=== PATIENT | male | born 1940 | race Caucasian/White ===

== ENCOUNTER 2018-03-25 08:51 | Emergency (ER) | payer MEDICARE, BC ==
--- NOTE | 2018-03-25 10:51 | CR ---
Chest: Two views of the chest were obtained. Comparison: Prior chest x-ray of 03/12/16. Heart size is normal. Tortuous thoracic aorta is seen. Nodule is seen within the left lung base most likely due to nipple density. Lungs otherwise are clear. Prior sternotomy is noted. Mild scoliosis is noted within the spine with scattered endplate spurring. Prior bilateral shoulder surgery is noted. Impression: 1. Incidental findings. Nothing acute is seen on two-view chest x-ray. Diagnostic code #2
--- NOTE | 2018-03-25 10:55 | EDM.PDOC ---
ED HPI GENERAL MEDICAL PROBLEM - General Chief Complaint: Cardiovascular Problem Stated Complaint: SWEATING AND LOW HEART RATE Time Seen by Provider: 03/25/18 09:42 Source of Information: Reports: Patient, Family (, son) History Limitations: Reports: No Limitations - History of Present Illness INITIAL COMMENTS - FREE TEXT/NARRATIVE: The patient states that he developed significant diaphoresis around 08:45 this morning, while sitting. It lasted less than 15 minutes. He has had similar symptoms recently, including O2:00 this morning, at which time he also had palpitations, the sensation of skipped beats, that lasted about 20 minutes. He also reports diaphoresis last evening after dinner, lasting about 15 minutes. The patient reports he has occasional diaphoresis, sometimes associated with hypoglycemia. The patient has diabetes. The patient states in the past his blood sugar has been as low as 39. When he checked his blood sugar at 02:00 this morning, it was 85. The patient also relates that he has had left chest and left upper extremity discomfort. It is an achy sensation, that he experienced while at the walk-in clinic this morning around 09:00, again, while sitting. The discomfort came on suddenly, and lasted about 3 minutes. He did not notice any modifiers. He states that he has had left-sided chest discomfort previously, several times over the past year. He has not noticed that there is any relationship between his chest discomfort and exertion. He states that he occasionally gets dyspneic , even at rest. The patient also notes that he has experienced tunnel vision whenever he stands up, since yesterday, and again this morning. The television is associated with dyspnea. The patient underwent repair of a ventricular septal defect in 1985, and had a couple of coronary angiograms around that time, which she reports were cleaned. He has no known history of coronary artery disease. His last stress test was approximately 2 years ago, which she states was negative. The patient's PCP is Dr. Velázquez. - Related Data Allergies Allergy/AdvReac Type Severity Reaction Status Date / Time acetaminophen Allergy Cannot Verified 03/25/18 09:10 [From Stefan] Remember codeine Allergy Cannot Verified 03/25/18 09:10 Remember ibuprofen Allergy Cannot Verified 03/25/18 09:10 Remember naproxen Allergy Cannot Verified 03/25/18 09:10 Remember propoxyphene napsylate Allergy Cannot Verified 03/25/18 09:10 [From Darmelvacet-N] Remember Sulfa (Sulfonamide Allergy Cannot Verified 03/25/18 09:10 Antibiotics) Remember Home Meds: Home Meds Aspirin [Halfprin] 81 mg PO BEDTIME 07/22/15 [History] Furosemide [Lasix] 40 mg PO DAILY 07/22/15 [History] Insulin Lispro [Humalog Kwikpen U-100] 25 unit INJECT TIDMEALS 07/22/15 [History ] Levothyroxine Sodium [Synthroid] 175 mcg PO DAILY 07/22/15 [History] Simvastatin [Zocor] 40 mg PO BEDTIME 07/22/15 [History] ALPRAZolam [Xanax] 0.25 mg PO ,16 03/13/16 [History] ALPRAZolam [Xanax] 0.5 mg PO BEDTIME 03/13/16 [History] Cholestatin 100-50-40 1 tab PO DAILY 03/13/16 [History] Fluticasone Propionate [Flonase] 2 sprays NASBOTH DAILY PRN 03/13/16 [History] Gabapentin [Neurontin] 600 mg PO ,16 03/13/16 [History] Gabapentin [Neurontin] 900 mg PO BEDTIME 03/13/16 [History] Lycopene 10 mg PO DAILY 03/13/16 [History] Ofloxacin [Floxin 0.3% Otic Soln] 5 drop EARBOTH BID PRN 03/13/16 [History] Albuterol [Ventolin HFA] 2 puff INH Q4HR PRN 03/25/18 [History] Amitriptyline [Elavil] 10 mg PO BEDTIME 03/25/18 [History] Cyclobenzaprine [Flexeril] 10 mg PO TID PRN 03/25/18 [History] Furosemide 40 mg PO ASDIRECTED PRN 03/25/18 [History] Insulin Glargine,Hum.Rec.Anlog [Toujeo Solostar] 80 unit SQ BEDTIME 03/25/18 [ History] Irbesartan [Avapro] 75 mg PO DAILY 03/25/18 [History] Metoprolol Succinate 25 mg PO DAILY 03/25/18 [History] Past Medical History HEENT History: Reports: Impaired Vision Other HEENT History: wears eyeglasses. Cardiovascular History: Reports: High Cholesterol, Hypertension Respiratory History: Reports: COPD (suspected) Gastrointestinal History: Reports: GERD Genitourinary History: Reports: BPH (untreated) Musculoskeletal History: Reports: Arthritis, Fracture Psychiatric History: Reports: Anxiety, Depression Endocrine/Metabolic History: Reports: Diabetes, Type II, Hypothyroidism Hematologic History: Reports: Blood Transfusion(s) Oncologic (Cancer) History: Reports: None - Infectious Disease History Infectious Disease History: Reports: Chicken Pox, Measles, Mumps, Pertussis ( Whooping Cough) - Past Surgical History HEENT Surgical History: Reports: Tonsillectomy Cardiovascular Surgical History: Reports: Other (See Below) (VSD repair 1985. 1 or 2 coronary angiograms around that time.) GI Surgical History: Reports: Appendectomy, Cholecystectomy, Colonoscopy Musculoskeletal Surgical History: Reports: Arthroscopic Procedure (bilateral shoulders), Knee Replacement (left x 2, right x 1), Other (See Below) (Left elbow, open) Social & Family History - Family History Family Medical History: Noncontributory - Tobacco Use Smoking Status *Q: Former Smoker Second Hand Smoke Exposure: No - Caffeine Use Caffeine Use: Reports: Coffee - Alcohol Use Alcohol Use History: No - Recreational Drug Use Recreational Drug Use: No - Living Situation & Occupation Living situation: Reports: , with Spouse Occupation: Retired ED ROS GENERAL - Review of Systems Review Of Systems: ROS reveals no pertinent complaints other than HPI. ED EXAM, GENERAL - Physical Exam Exam: See Below Exam Limited By: No Limitations General Appearance: Alert, WD/WN, No Apparent Distress Eye Exam: Bilateral Eye: Normal Inspection Ears: Normal External Exam, Hearing Grossly Normal Nose: Normal Inspection, No Blood Throat/Mouth: Normal Inspection, Normal Lips, Normal Voice, No Airway Compromise Head: Atraumatic, Normocephalic Neck: Normal Inspection, Full Range of Motion Respiratory/Chest: No Respiratory Distress, Lungs Clear, Normal Breath Sounds, No Accessory Muscle Use, Chest Non-Tender (including to left chest and LUE) Cardiovascular: Normal Peripheral Pulses, Regular Rate, Rhythm, No Gallop, No JVD, No Rub Peripheral Pulses: 4+: Radial (L), Radial (R) GI/Abdominal: Normal Bowel Sounds, Soft, Non-Tender, No Organomegaly, No Distention, No Abnormal Bruit, No Mass, Other (Obese) (Male) Exam: Deferred Rectal (Males) Exam: Deferred Back Exam: Normal Inspection, Full Range of Motion, NT Extremities: Normal Inspection, Normal Range of Motion, Normal Capillary Refill Neurological: Alert, Oriented, Normal Cognition, No Motor/Sensory Deficits Psychiatric: Normal Affect Skin Exam: Warm, Dry, Intact, Normal Color, No Rash EKG INTERPRETATION EKG Date: 03/25/18 Time: 09:02 Rhythm: NSR Rate (Beats/Min): 88 [place]: Normal P-Wave: Present QRS: Wide (Nonspecific intraventricular conduction) ST-T: Normal QT: Normal Comparison: No Change (03/13/2016) Course - Vital Signs Last Recorded V/S: Last Vital Signs Temp 36.1 C 03/25/18 09:00 Pulse 78 03/25/18 12:30 Resp 15 03/25/18 12:30 BP 114/63 03/25/18 12:30 Pulse Ox 92 L 03/25/18 12:30 - Orders/Labs/Meds Labs: Laboratory Tests 03/25/18 03/25/18 03/25/18 Range/Units 09:05 09:05 09:05 WBC 7.68 (4.23-9.07) K/mm3 RBC 5.57 (4.63-6.08) M/mm3 Hgb 17.0 (13.7-17.5) gm/L Hct 49.2 (40.1-51.0) % MCV 88.3 (79.0-92.2) fl MCH 30.5 (25.7-32.2) pg MCHC 34.6 (32.2-35.5) g/dl RDW Std Deviation 43.9 (35.1-43.9) fL Plt Count 218 (163-337) K/mm3 MPV 8.6 L (9.4-12.3) fl Neutrophils % (Manual) 61 H (40-60) % Band Neutrophils % 0 (0-10) % Lymphocytes % (Manual) 27 (20-40) % Atypical Lymphs % 0 % Monocytes % (Manual) 9 (2-10) % Eosinophils % (Manual) 3 (0.8-7.0) % Basophils % (Manual) 0 L (0.2-1.2) Platelet Estimate Adequate RBC Morph Comment Normal PT 10.7 (9.5-12.1) SECONDS INR 0.98 APTT 27 (24-31) SECONDS D-Dimer, Quantitative 0.39 (0.19-0.50) mg/L Sodium 138 (136-145) mEq/L Potassium 3.7 (3.5-5.1) mEq/L Chloride 99 (98-107) mEq/L Carbon Dioxide 32 (21-32) mEq/L Anion Gap 10.7 (5-15) BUN 21 H (7-18) mg/dL Creatinine 1.4 H (0.7-1.3) mg/dL Est Cr Clr Drug Dosing 48.50 mL/min Estimated GFR (MDRD) 49 (>60) mL/min BUN/Creatinine Ratio 15.0 (14-18) Glucose 135 H (83-115) mg/dL Calcium 9.5 (8.5-10.1) mg/dL Total Bilirubin 1.2 H (0.2-1.0) mg/dL AST 68 H (15-37) U/L ALT 147 H (16-63) U/L Alkaline Phosphatase 68 (46-116) U/L Troponin I < 0.017 (0.00-0.056) ng/mL NT-Pro-B Natriuret Pep (0-450) pg/mL Total Protein 7.4 (6.4-8.2) g/dl Albumin 4.1 (3.4-5.0) g/dl Globulin 3.3 gm/dL Albumin/Globulin Ratio 1.2 (1-2) /18/18 Range/Units 09:05 WBC (4.23-9.07) K/mm3 RBC (4.63-6.08) M/mm3 Hgb (13.7-17.5) gm/L Hct (40.1-51.0) % MCV (79.0-92.2) fl MCH (25.7-32.2) pg MCHC (32.2-35.5) g/dl RDW Std Deviation (35.1-43.9) fL Plt Count (163-337) K/mm3 MPV (9.4-12.3) fl Neutrophils % (Manual) (40-60) % Band Neutrophils % (0-10) % Lymphocytes % (Manual) (20-40) % Atypical Lymphs % % Monocytes % (Manual) (2-10) % Eosinophils % (Manual) (0.8-7.0) % Basophils % (Manual) (0.2-1.2) Platelet Estimate RBC Morph Comment PT (9.5-12.1) SECONDS INR APTT (24-31) SECONDS D-Dimer, Quantitative (0.19-0.50) mg/L Sodium (136-145) mEq/L Potassium (3.5-5.1) mEq/L Chloride (98-107) mEq/L Carbon Dioxide (21-32) mEq/L Anion Gap (5-15) BUN (7-18) mg/dL Creatinine (0.7-1.3) mg/dL Est Cr Clr Drug Dosing mL/min Estimated GFR (MDRD) (>60) mL/min BUN/Creatinine Ratio (14-18) Glucose (83-115) mg/dL Calcium (8.5-10.1) mg/dL Total Bilirubin (0.2-1.0) mg/dL AST (15-37) U/L ALT (16-63) U/L Alkaline Phosphatase (46-116) U/L Troponin I (0.00-0.056) ng/mL NT-Pro-B Natriuret Pep 67 (0-450) pg/mL Total Protein (6.4-8.2) g/dl Albumin (3.4-5.0) g/dl Globulin gm/dL Albumin/Globulin Ratio (1-2) - Re-Assessments/Exams Free Text/Narrative Re-Assessment/Exam: 03/25/18 10:54 Two-view chest radiograph is read by Dr. Paulino as: 1. Incidental findings. Nothing acute is seen on 2-view chest x-ray. 03/25/18 11:58 Test results discussed with the patient and his . Today's workup is unremarkable, with the exception of mild renal insufficiency. His BUN/Cr today are 21/1.4; they were 26/1.1 on 03/13/2016. Additionally, the patient's blood glucose is mildly elevated at 135. The remainder of the patient's workup is unremarkable. As above, the patient's ECG shows 2 PVCs with normal compensatory pauses. The patient PVCs in and of themselves are usually meaningless, and no treatment is indicated unless a structural heart abnormality is found. Given the patient's history of VSD repair, this may be the cause. I'm recommending an outpatient echocardiogram and possible referral to Cardiology. I am more concerned by the patient's history of intermittent left-sided chest pain, diaphoresis, and dyspnea. I'm concerned that these represent cardiac ischemia. I am recommending an outpatient stress test. Both the stress test and echocardiogram can be ordered by the patient's PCP, Dr. Mora. Departure - Departure Time of Disposition: 12:06 Disposition: Home, Self-Care 01 Condition: Good Clinical Impression: Diaphoresis, Left sided chest pain, Dyspnea, PVCs (premature ventricular contractions) Instructions: Shortness of Breath, Adult Referrals: Aashish Velázquez MD [Primary Care Provider] - Forms: ED Department Discharge Additional Instructions: You were seen in the emergency room for intermittent left-sided chest pain, sweatiness, shortness of breath, and palpitations. Workup in the ER included blood work, a chest x-ray, and an ECG. Your workup found that your kidney function is slightly impaired, and your blood sugar slightly elevated, otherwise, your workup was unremarkable. The cause of your left-sided chest pain, sweatiness, and shortness of breath is not known, but may be due to coronary artery disease. We recommend that you follow-up with your PCP, Dr. Velázquez, to discuss getting a stress test. Your palpitations are likely due to occasional PVCs (premature ventricular contractions), which are usually meaningless, but occasionally need treatment if you have structural heart disease. We recommend that you discuss the option of an echocardiogram with Dr. Velázquez. If any other problems, please do not hesitate to return to the ER.
[2018-03-25 13:05] VITALS: BP 114/63
== END 2018-03-25 12:30 | disposition home or self-care (01) ==
LOC: JD.ED 08:51
DX: I49.3 Ventricular premature depolarization (principal); R61 Generalized hyperhidrosis; R06.00 Dyspnea, unspecified; E78.00 Pure hypercholesterolemia, unspecified; I10 Essential (primary) hypertension; E11.9 Type 2 diabetes mellitus without complications; E03.9 Hypothyroidism, unspecified; Z88.6 Allergy status to analgesic agent; Z88.5 Allergy status to narcotic agent; Z88.2 Allergy status to sulfonamides; Z88.8 Allergy status to other drugs, medicaments and biological substances; Z79.82 Long term (current) use of aspirin; Z79.899 Other long term (current) drug therapy; Z79.4 Long term (current) use of insulin; Z87.891 Personal history of nicotine dependence
CPT/HCPCS: 36415; 71046; 71046-26; 80053; 83880; 84484; 85007; 85027; 85379; 85610; 85730; 93005; 99285-25

== ENCOUNTER 2019-10-20 14:24 | Emergency (ER) | payer MEDICARE, OTHER ==
[2019-10-20 14:36] VITALS: BP 150/76; PULSE 80
[2019-10-20] MEDS ORDERED: Sodium Chloride 0.9% 10 ML Syringe FLUSH PRN (15:24)
--- NOTE | 2019-10-20 15:26 | EDM.PDOC ---
ED HPI GENERAL MEDICAL PROBLEM - General Chief Complaint: Cardiovascular Problem Stated Complaint: FEELS LIKE HE IS GOING TO BLACK OUT Time Seen by Provider: 10/20/19 15:21 Source of Information: Reports: Patient, RN Notes Reviewed History Limitations: Reports: No Limitations - History of Present Illness INITIAL COMMENTS - FREE TEXT/NARRATIVE: Patient is a 78-year-old male who presents to the ED for the evaluation of feeling like he is going to pass out. The patient notes that when he got up this morning, he started walking around, ended up feeling faint, and had some increased pressure in his head like he was congested. These episodes are intermittent, he's had several this morning. He notes that he feels a little bit of shortness of breath with these episodes, but no chest pain. He does state that his heart feels as if his fluttering as well. He has not had any symptoms like this before. His primary care provider is Dr. Mora. Patient states he is a diabetic, did check his blood sugar and it was 109 this morning. He notes he has not made any dietary changes, nor has he started any sort of supplements. He further denies any history of atrial fibrillation at this time. Headache Pain Score (Numeric/FACES): 4 - Related Data Allergies Allergy/AdvReac Type Severity Reaction Status Date / Time acetaminophen Allergy Cannot Verified 10/20/19 14:36 [From Darvocet-N] Remember codeine Allergy Cannot Verified 10/20/19 14:36 Remember ibuprofen Allergy Cannot Verified 10/20/19 14:36 Remember naproxen Allergy Cannot Verified 10/20/19 14:36 Remember propoxyphene napsylate Allergy Cannot Verified 10/20/19 14:36 [From Darvocet-N] Remember Sulfa (Sulfonamide Allergy Cannot Verified 10/20/19 14:36 Antibiotics) Remember Home Meds: Home Meds Aspirin [Halfprin] 81 mg PO BEDTIME 07/22/15 [History] Furosemide [Lasix] 40 mg PO DAILY 07/22/15 [History] Levothyroxine Sodium [Synthroid] 175 mcg PO DAILY 07/22/15 [History] Simvastatin [Zocor] 40 mg PO BEDTIME 07/22/15 [History] ALPRAZolam [Xanax] 0.25 mg PO BID 03/13/16 [History] ALPRAZolam [Xanax] 0.5 mg PO BEDTIME 03/13/16 [History] Cholestatin 100-50-40 1 tab PO DAILY 03/13/16 [History] Fluticasone Propionate [Flonase] 2 sprays NASBOTH DAILY PRN 03/13/16 [History] Lycopene 10 mg PO BID 03/13/16 [History] Amitriptyline [Elavil] 10 mg PO BEDTIME 03/25/18 [History] Insulin Glargine,Hum.Rec.Anlog [[place] Solostar] 80 unit SQ BEDTIME 03/25/18 [ History] Irbesartan [Avapro] 75 mg PO DAILY 03/25/18 [History] Metoprolol Succinate 50 mg PO DAILY 03/25/18 [History] Insulin Lispro [HumaLOG] 1 unit SUBCUT ASDIRECTED 10/20/19 [History] Sildenafil [Viagra] 50 mg PO ASDIRECTED PRN 10/20/19 [History] Past Medical History HEENT History: Reports: Impaired Vision Other HEENT History: wears eyeglasses. Cardiovascular History: Reports: High Cholesterol, Hypertension Other Cardiovascular History: [facility] 1985 Respiratory History: Reports: COPD Gastrointestinal History: Reports: GERD Other Gastrointestinal History: some constipation issues Genitourinary History: Reports: BPH Musculoskeletal History: Reports: Arthritis, Fracture Neurological History: Reports: None Psychiatric History: Reports: Anxiety, Depression Endocrine/Metabolic History: Reports: Diabetes, Type II, Hypothyroidism Hematologic History: Reports: Blood Transfusion(s) Oncologic (Cancer) History: Reports: None - Infectious Disease History Infectious Disease History: Reports: Chicken Pox, Measles, Mumps, Pertussis ( Whooping Cough) - Past Surgical History HEENT Surgical History: Reports: Tonsillectomy Cardiovascular Surgical History: Reports: Other (See Below) Other Cardiovascular Surgeries/Procedures: [facility] 1985 GI Surgical History: Reports: Appendectomy, Cholecystectomy, Colonoscopy Musculoskeletal Surgical History: Reports: Arthroscopic Procedure, Knee Replacement, Other (See Below) Social & Family History - Family History Family Medical History: Noncontributory - Tobacco Use Smoking Status *Q: Never Smoker - Caffeine Use Caffeine Use: Reports: Coffee - Living Situation & Occupation Living situation: Reports: , with Spouse Occupation: Retired ED ROS GENERAL - Review of Systems Review Of Systems: See Below Constitutional: Denies: Fever, Chills, Malaise HEENT: Denies: Vision Change Respiratory: Reports: Shortness of Breath (with episodes) Cardiovascular: Reports: Palpitations (feels heart fluttering). Denies: Chest Pain, Blood Pressure Problem GI/Abdominal: Denies: Abdominal Pain, Diarrhea, Nausea, Vomiting Musculoskeletal: Denies: Arm Pain Neurological: Reports: Other (Pre-syncope). Denies: Confusion, Headache ED EXAM, GENERAL - Physical Exam Exam: See Below Exam Limited By: No Limitations General Appearance: Alert, WD/WN, No Apparent Distress Eye Exam: Bilateral Eye: EOMI, Normal Inspection, PERRL Nose: Normal Inspection Throat/Mouth: Normal Inspection, Normal Lips, Normal Teeth, Normal Gums, Normal Oropharynx, Normal Voice, No Airway Compromise Head: Atraumatic, Normocephalic Neck: Normal Inspection Respiratory/Chest: No Respiratory Distress, Lungs Clear, Normal Breath Sounds, No Accessory Muscle Use, Chest Non-Tender Cardiovascular: Normal Peripheral Pulses, Regular Rate, Rhythm, No Edema, No Murmur Peripheral Pulses: 3+: Radial (L), Radial (R), Dorsalis Pedis (L), Dorsalis Pedis (R) GI/Abdominal: Normal Bowel Sounds, Soft, Non-Tender, No Distention, No Mass Extremities: Normal Inspection, Normal Capillary Refill Neurological: Alert, Oriented, Normal Cognition, No Motor/Sensory Deficits Psychiatric: Normal Affect, Normal Mood Skin Exam: Warm, Dry, Intact, Normal Color, No Rash EKG INTERPRETATION EKG Date: 10/20/19 Time: 14:35 Rhythm: NSR Rate (Beats/Min): 78 [place]: Normal P-Wave: Present QRS: Normal ST-T: Normal QT: Normal Comparison: No Change (compared with 03/22/18 PVCs w compensatory pause noted) EKG Interpretation Comments: premature atrial complexes noted, no acute ischemic change. Reviewed by myself and Dr. Augustin. Course - Vital Signs Last Recorded V/S: Last Vital Signs Temp 98.5 F 10/20/19 14:32 Pulse 80 10/20/19 14:32 Resp 18 10/20/19 14:32 BP 150/76 H 10/20/19 14:32 Pulse Ox 95 10/20/19 14:32 - Orders/Labs/Meds Orders: Active Orders 24 hr Category Date Time Status EKG Documentation Completion [RC] ASDIRECTED Care 10/20/19 14:37 Active Holter Monitor 48 Hours [RC] .PRN Care 10/20/19 16:59 Active Peripheral IV Care [RC] . DIRECTED Care 10/20/19 15:24 Active Chest 1V Frontal [CR] Stat Exams 10/20/19 15:24 Taken Sodium Chloride 0.9% [Saline Flush] Med 10/20/19 15:24 Active 10 ml FLUSH ASDIRECTED PRN Peripheral IV Insertion Adult [OM.PC] Stat Oth 10/20/19 15:24 Ordered EKG 12 Lead [EK] Stat Ther 10/20/19 14:37 Ordered Medication Orders Sodium Chloride (Saline Flush) 10 ml FLUSH ASDIRECTED PRN PRN Reason: Keep Vein Open Last Admin: 10/20/19 15:27 Dose: 10 ml Labs: Laboratory Tests 10/20/19 10/20/19 10/20/19 Range/Units 14:45 14:45 14:45 WBC 6.59 (4.23-9.07) K/mm3 RBC 4.87 (4.63-6.08) M/mm3 Hgb 14.9 D (13.7-17.5) gm/dl Hct 42.8 (40.1-51.0) % MCV 87.9 (79.0-92.2) fl MCH 30.6 (25.7-32.2) pg MCHC 34.8 (32.2-35.5) g/dl RDW Std Deviation 42.5 (35.1-43.9) fL Plt Count 190 (163-337) K/mm3 MPV 9.0 L (9.4-12.3) fl Neut % (Auto) 54.8 (34.0-67.9) % Lymph % (Auto) 27.2 (21.8-53.1) % [place] % (Auto) 13.5 H (5.3-12.2) % Eos % (Auto) 3.8 (0.8-7.0) Baso % (Auto) 0.5 (0.1-1.2) % Neut # (Auto) 3.62 (1.78-5.38) K/mm3 Lymph # (Auto) 1.79 (1.32-3.57) K/mm3 [place] # (Auto) 0.89 H (0.30-0.82) K/mm3 Eos # (Auto) 0.25 (0.04-0.54) K/mm3 Baso # (Auto) 0.03 (0.01-0.08) K/mm3 PT 10.4 (9.7-12.0) SECONDS INR 0.95 APTT 26 (22-31) SECONDS Sodium 139 (136-145) mEq/L Potassium 4.1 (3.5-5.1) mEq/L Chloride 105 (98-107) mEq/L Carbon Dioxide 25 (21-32) mEq/L Anion Gap 13.1 (5-15) BUN 30 H (7-18) mg/dL Creatinine 1.5 H (0.7-1.3) mg/dL Est Cr Clr Drug Dosing 44.55 mL/min Estimated GFR (MDRD) 45 (>60) mL/min BUN/Creatinine Ratio 20.0 H (14-18) Glucose 92 (83-115) mg/dL Calcium 8.5 (8.5-10.1) mg/dL Magnesium (1.8-2.4) mg/dl Total Bilirubin 0.8 (0.2-1.0) mg/dL AST 20 (15-37) U/L ALT 32 (16-63) U/L Alkaline Phosphatase 66 (46-116) U/L Troponin I < 0.017 (0.00-0.056) ng/mL NT-Pro-B Natriuret Pep (0-450) pg/mL Total Protein 6.9 (6.4-8.2) g/dl Albumin 4.1 (3.4-5.0) g/dl Globulin 2.8 gm/dL Albumin/Globulin Ratio 1.5 (1-2) TSH 3rd Generation (0.358-3.74) uIU/mL 10/20/19 10/20/19 10/20/19 Range/Units 14:45 14:45 14:45 WBC (4.23-9.07) K/mm3 RBC (4.63-6.08) M/mm3 Hgb (13.7-17.5) gm/dl Hct (40.1-51.0) % MCV (79.0-92.2) fl MCH (25.7-32.2) pg MCHC (32.2-35.5) g/dl RDW Std Deviation (35.1-43.9) fL Plt Count (163-337) K/mm3 MPV (9.4-12.3) fl Neut % (Auto) (34.0-67.9) % Lymph % (Auto) (21.8-53.1) % [place] % (Auto) (5.3-12.2) % Eos % (Auto) (0.8-7.0) Baso % (Auto) (0.1-1.2) % Neut # (Auto) (1.78-5.38) K/mm3 Lymph # (Auto) (1.32-3.57) K/mm3 [place] # (Auto) (0.30-0.82) K/mm3 Eos # (Auto) (0.04-0.54) K/mm3 Baso # (Auto) (0.01-0.08) K/mm3 PT (9.7-12.0) SECONDS INR APTT (22-31) SECONDS Sodium (136-145) mEq/L Potassium (3.5-5.1) mEq/L Chloride (98-107) mEq/L Carbon Dioxide (21-32) mEq/L Anion Gap (5-15) BUN (7-18) mg/dL Creatinine (0.7-1.3) mg/dL Est Cr Clr Drug Dosing mL/min Estimated GFR (MDRD) (>60) mL/min BUN/Creatinine Ratio (14-18) Glucose (83-115) mg/dL Calcium (8.5-10.1) mg/dL Magnesium 2.1 (1.8-2.4) mg/dl Total Bilirubin (0.2-1.0) mg/dL AST (15-37) U/L ALT (16-63) U/L Alkaline Phosphatase (46-116) U/L Troponin I (0.00-0.056) ng/mL NT-Pro-B Natriuret Pep 192 (0-450) pg/mL Total Protein (6.4-8.2) g/dl Albumin (3.4-5.0) g/dl Globulin gm/dL Albumin/Globulin Ratio (1-2) TSH 3rd Generation 0.927 (0.358-3.74) uIU/mL Meds: Medications Generic Name Dose Route Start Last Admin Trade Name Aleyda PRN Reason Stop Dose Admin Sodium Chloride 10 ml 10/20/19 15:24 10/20/19 15:27 Saline Flush FLUSH 10 ml ASDIRECTED PRN Administration Keep Vein Open - Re-Assessments/Exams Free Text/Narrative Re-Assessment/Exam: 10/20/19 15:57 Patient presents to the ED for evaluation feeling faint with palpitations. EKG was done at time of triage, and demonstrates PACs, but no acute ischemic changes noted. CBC, CMP, regulation studies, troponin, magnesium, BNP, chest x- ray will also be obtained along with TSH, as the patient is on thyroid supplementation. If labs are nonfocal, will likely send patient home with a Holter monitor and have him follow-up with his primary care provider for further management. 10/20/19 16:59 Patient's labs are back, demonstrate no focal abnormalities at this time. TSH was within normal limits, and he has not hypomagnesemia. Troponin is negative. Chest x-ray demonstrates no acute focal abnormalities. However official radiology read is pending. We will discharge home with 48 hour Holter monitor and have him follow up with his primary care provider for results. Departure - Departure Time of Disposition: 17:01 Disposition: Home, Self-Care 01 Condition: Fair Clinical Impression: Palpitations Instructions: Palpitations, [id number] Referrals: Aashish Velázquez MD [Primary Care Provider] - Forms: ED Department Discharge Additional Instructions: You were evaluated in the ER today regarding your feelings of your heart fluttering. Your EKG demonstrated a few premature atrial contractions, but there was no acute ischemic change noted. Her laboratory evaluation was also negative for any sort of acute abnormalities. You will be sent home with a Holter monitor, this monitors your heartbeat 24/7 for 48 hours. Please try to wear at all times during this time span. This may be taken off to shower if needed. You will need to follow-up with Dr. Mora after the Holter monitor has been turned in, please give one week for results to be resulted. Please return to the ER at any time if your symptoms change or worsen. Sepsis Event Note - Evaluation Sepsis Screening Result: No Definite Risk - Focused Exam Vital Signs: Vital Signs Temp Pulse Resp BP Pulse Ox 10/20/19 14:32 98.5 F 80 18 150/76 H 95 Date Exam was Performed: 10/20/19 Time Exam was Performed: 17:12 - My Orders Last 24 Hours: My Active Orders 10/20/19 15:24 Peripheral IV Care [RC] . DIRECTED Chest 1V Frontal [CR] Stat Sodium Chloride 0.9% [Saline Flush] 10 ml FLUSH ASDIRECTED PRN Peripheral IV Insertion Adult [OM.PC] Stat 10/20/19 16:59 Holter Monitor 48 Hours [RC] .PRN - Assessment/Plan Last 24 Hours: My Active Orders 10/20/19 15:24 Peripheral IV Care [RC] . DIRECTED Chest 1V Frontal [CR] Stat Sodium Chloride 0.9% [Saline Flush] 10 ml FLUSH ASDIRECTED PRN Peripheral IV Insertion Adult [OM.PC] Stat 10/20/19 16:59 Holter Monitor 48 Hours [RC] .PRN
--- NOTE | 2019-10-23 10:34 | CR ---
Chest: Portable view of the chest was obtained. Comparison: Prior chest x-ray of 03/25/18. Heart size is felt to be within normal limits for portable technique. Tortuous thoracic aorta is seen. Lungs are clear with no acute parenchymal change. Bony structures are grossly intact. Impression: 1. Nothing acute is seen on portable chest x-ray. Diagnostic code #1 This report was dictated in [place] Standard Time
== END 2019-10-20 17:26 | disposition home or self-care (01) ==
LOC: JD.ED 14:24
DX: R00.2 Palpitations (principal); R55 Syncope and collapse; E11.9 Type 2 diabetes mellitus without complications; I10 Essential (primary) hypertension; E03.9 Hypothyroidism, unspecified; E78.00 Pure hypercholesterolemia, unspecified; J44.9 Chronic obstructive pulmonary disease, unspecified; F32.9 Major depressive disorder, single episode, unspecified; Z79.4 Long term (current) use of insulin; Z79.82 Long term (current) use of aspirin; Z79.890 Hormone replacement therapy; Z79.899 Other long term (current) drug therapy; Z88.2 Allergy status to sulfonamides; Z88.5 Allergy status to narcotic agent; Z88.6 Allergy status to analgesic agent
CPT/HCPCS: 36415; 71045; 71045-26; 80053; 83735; 83880; 84443; 84484; 85025; 85610; 85730; 93005; 93010; 93225; 93226; 99284; 99285-25

== ENCOUNTER 2021-08-06 23:55 | Emergency (ER) | payer MEDICARE, OTHER ==
[2021-08-07 00:06] VITALS: BP 152/72; PULSE 85
[2021-08-07] MEDS ORDERED: Acetaminophen 325 MG Tab PO ONE (00:23)
--- NOTE | 2021-08-07 02:00 | EDM.PDOC ---
ED HPI GENERAL MEDICAL PROBLEM - General Chief Complaint: Fever Stated Complaint: [facility] Time Seen by Provider: 08/07/21 00:19 Source of Information: Reports: Patient, RN Notes Reviewed - History of Present Illness INITIAL COMMENTS - FREE TEXT/NARRATIVE: 80 yr old male started with cough, chills, Braun, diarrhea about 5 to 6 days ago. Has tested pos. for covid. Had IV antibody Rx at clinic this past afternoon. Believes he had high fever at home, called ambulance. Has been coughing but not short of breath. Had pfizer vaccine about 6 months ago. Headache Pain Score (Numeric/FACES): 9 - Related Data Allergies Allergy/AdvReac Type Severity Reaction Status Date / Time acetaminophen Allergy Cannot Verified 08/07/21 00:06 [From Stefan] Remember codeine Allergy Cannot Verified 08/07/21 00:06 Remember ibuprofen Allergy Cannot Verified 08/07/21 00:06 Remember naproxen Allergy Cannot Verified 08/07/21 00:06 Remember propoxyphene napsylate Allergy Cannot Verified 08/07/21 00:06 [From Fito-Flor] Remember Sulfa (Sulfonamide Allergy Cannot Verified 08/07/21 00:06 Antibiotics) Remember Home Meds: Home Meds Aspirin [Halfprin] 81 mg PO BEDTIME 07/22/15 [History] Furosemide [Lasix] 40 mg PO BID 07/22/15 [History] Levothyroxine Sodium [Synthroid] 175 mcg PO DAILY 07/22/15 [History] Simvastatin [Zocor] 40 mg PO BEDTIME 07/22/15 [History] ALPRAZolam [Xanax] 0.25 mg PO BID 03/13/16 [History] Cholestatin 100-50-40 1 tab PO DAILY 03/13/16 [History] Fluticasone Propionate [Flonase] 2 sprays NASBOTH DAILY PRN 03/13/16 [History] Lycopene 10 mg PO BID 03/13/16 [History] Amitriptyline [Elavil] 10 mg PO BEDTIME 03/25/18 [History] Insulin Glargine,Hum.Rec.Anlog [[place] Solostar] 80 unit SQ BEDTIME 03/25/18 [History] Irbesartan [Avapro] 75 mg PO DAILY 03/25/18 [History] Metoprolol Succinate 50 mg PO DAILY 03/25/18 [History] Insulin Lispro [HumaLOG] 1 unit SUBCUT ASDIRECTED 10/20/19 [History] Past Medical History HEENT History: Reports: Impaired Vision Other HEENT History: wears eyeglasses. Cardiovascular History: Reports: High Cholesterol, Hypertension Other Cardiovascular History: [facility] 1985 Respiratory History: Reports: COPD Gastrointestinal History: Reports: GERD Other Gastrointestinal History: some constipation issues Genitourinary History: Reports: BPH Musculoskeletal History: Reports: Arthritis, Fracture Neurological History: Reports: None Psychiatric History: Reports: Anxiety, Depression Endocrine/Metabolic History: Reports: Diabetes, Type II, Hypothyroidism Hematologic History: Reports: Blood Transfusion(s) Oncologic (Cancer) History: Reports: None - Infectious Disease History Infectious Disease History: Reports: Chicken Pox, Measles, Mumps, Novel Coronavirus, Pertussis (Whooping Cough) - Past Surgical History HEENT Surgical History: Reports: Tonsillectomy Other HEENT Surgeries/Procedures: 2 surgeries to left ear Cardiovascular Surgical History: Reports: Other (See Below) Other Cardiovascular Surgeries/Procedures: [facility] 1985 GI Surgical History: Reports: Appendectomy, Cholecystectomy, Colonoscopy Musculoskeletal Surgical History: Reports: Arthroscopic Procedure, Knee Replacement, Other (See Below) Other Musculoskeletal Surgeries/Procedures:: rotator cuff surgery to both shoulders, left knee replaced Social & Family History - Family History Family Medical History: No Pertinent Family History - Tobacco Use Tobacco Use Status *Q: Never Tobacco User Used Tobacco, but Quit: Yes Month/Year Tobacco Last Used: 40 years ago - Caffeine Use Caffeine Use: Reports: None - Recreational Drug Use Recreational Drug Use: No - Living Situation & Occupation Living situation: Reports: , with Spouse Occupation: Retired ED ROS GENERAL - Review of Systems Review Of Systems: See Below Constitutional: Reports: Fever, Chills HEENT: Reports: Rhinitis (mild) Respiratory: Reports: Cough. Denies: Shortness of Breath Cardiovascular: Denies: Chest Pain Endocrine: Reports: Fatigue GI/Abdominal: Reports: Diarrhea. Denies: Nausea, Vomiting Musculoskeletal: Reports: Other (mild achiness) Neurological: Reports: Headache. Denies: Trouble Speaking, Difficulty Walking ED EXAM, GENERAL - Physical Exam Exam: See Below General Appearance: Alert, No Apparent Distress Head: Atraumatic Neck: Supple Respiratory/Chest: No Respiratory Distress, Lungs Clear, Normal Breath Sounds. No: Rales, Rhonchi, Wheezing GI/Abdominal: Soft, Non-Tender Back Exam: No: CVA Tenderness (L), CVA Tenderness (R) Extremities: Normal Inspection. No: Pedal Edema, Leg Pain, Increased Warmth, Redness Neurological: Alert, Oriented, No Motor/Sensory Deficits Skin Exam: Warm, Dry, Normal Color Course - Vital Signs Last Recorded V/S: Last Vital Signs Temp 98.2 F 08/07/21 01:27 Pulse 85 08/06/21 23:59 Resp 20 08/06/21 23:59 BP 152/72 H 08/06/21 23:59 Pulse Ox 93 L 08/06/21 23:59 - Orders/Labs/Meds Orders: Active Orders 24 hr Category Date Time Status Chest 1V Frontal [CR] Stat Exams 08/07/21 00:21 Taken Labs: Laboratory Tests 08/07/21 08/07/21 08/07/21 Range/Units 00:36 00:36 00:36 WBC 7.57 (4.23-9.07) K/mm3 RBC 4.62 L (4.63-6.08) M/mm3 Hgb 14.3 (13.7-17.5) gm/dl Hct 41.9 (40.1-51.0) % MCV 90.7 (79.0-92.2) fl MCH 31.0 (25.7-32.2) pg MCHC 34.1 (32.2-35.5) g/dl RDW Std Deviation 45.2 H (35.1-43.9) fL Plt Count 89 L D (163-337) K/mm3 MPV 8.8 L (9.4-12.3) fl Neut % (Auto) 76.5 H (34.0-67.9) % Lymph % (Auto) 12.2 L (21.8-53.1) % [place] % (Auto) 10.8 (5.3-12.2) % Eos % (Auto) 0.3 L (0.8-7.0) Baso % (Auto) 0.1 (0.1-1.2) % Neut # (Auto) 5.79 H (1.78-5.38) K/mm3 Lymph # (Auto) 0.92 L (1.32-3.57) K/mm3 [place] # (Auto) 0.82 (0.30-0.82) K/mm3 Eos # (Auto) 0.02 L (0.04-0.54) K/mm3 Baso # (Auto) 0.01 (0.01-0.08) K/mm3 Manual Slide Review Abnormal smear Sodium 136 (136-145) mEq/L Potassium 4.0 (3.5-5.1) mEq/L Chloride 102 (98-107) mEq/L Carbon Dioxide 24 (21-32) mEq/L Anion Gap 14.0 (5-15) BUN 22 H (7-18) mg/dL Creatinine 1.2 (0.7-1.3) mg/dL Est Cr Clr Drug Dosing 53.89 mL/min Estimated GFR (MDRD) 58 (>60) mL/min BUN/Creatinine Ratio 18.3 H (14-18) Glucose 167 H (70-99) mg/dL Calcium 8.0 L (8.5-10.1) mg/dL Total Bilirubin 1.0 (0.2-1.0) mg/dL AST 23 (15-37) U/L ALT 35 (16-63) U/L Alkaline Phosphatase 55 (46-116) U/L C-Reactive Protein 3.5 H* (<1.0) mg/dL Total Protein 6.8 (6.4-8.2) g/dl Albumin 3.5 (3.4-5.0) g/dl Globulin 3.3 gm/dL Albumin/Globulin Ratio 1.1 (1-2) Meds: Medications Discontinued Medications Generic Name Dose Route Start Last Admin Trade Name Aleyda PRN Reason Stop Dose Admin Acetaminophen 975 mg 08/07/21 00:23 08/07/21 01:27 Acetaminophen 325 Mg Tab PO 08/07/21 00:24 325 mg NOW ONE Administration - Re-Assessments/Exams Free Text/Narrative Re-Assessment/Exam: 08/07/21 02:30 CXR looks good, labs are relatively good, sats 95 % room air. It is good to know he has been vaccinated. I do not see pneumonia on his CXR. He thought he was allergic to tylenol (darvon) but we gave him 325 mg PO. He tolerated that without any rash, hives or other difficulty. Discharge instr. as documented. Departure - Departure Time of Disposition: 01:59 Disposition: Home, Self-Care 01 Condition: Fair Clinical Impression: COVID-19 virus infection - Discharge Information Instructions: COVID-19 Frequently Asked Questions Referrals: Aashish Velázquez MD [Primary Care Provider] - Forms: ED Department Discharge Additional Instructions: Your CXR is clear, no obvious pneumonia. Rest. Drink plenty of fluids. Tylenol 500 mg q 6 to 8 hr as needed for discomfort. Return to ED if needed for any severe difficulty breathing or otherwise as needed. Sepsis Event Note (ED) - Focused Exam Vital Signs: Vital Signs Temp Temp Pulse Resp BP Pulse Ox 08/07/21 01:27 98.2 F 08/06/21 23:59 98.8 F 85 20 152/72 H 93 L - My Orders Last 24 Hours: My Active Orders 08/07/21 00:21 Chest 1V Frontal [CR] Stat - Assessment/Plan Last 24 Hours: My Active Orders 08/07/21 00:21 Chest 1V Frontal [CR] Stat
--- NOTE | 2021-08-07 06:50 | CR ---
Chest: Frontal view of the chest was obtained. Comparison: Prior chest x-ray of 10/20/19. Heart size and mediastinum are within normal limits. Lungs are clear with no acute parenchymal change. Sternotomy is noted. Prior bilateral shoulder surgery appears to be present. Impression: 1. Incidental findings. 2. Nothing acute is seen on frontal chest x-ray. Diagnostic code #2
== END 2021-08-07 02:13 | disposition home or self-care (01) ==
LOC: JD.ED 23:55
DX: U07.1 COVID-19 (principal); E78.00 Pure hypercholesterolemia, unspecified; I10 Essential (primary) hypertension; J44.9 Chronic obstructive pulmonary disease, unspecified; K21.9 Gastro-esophageal reflux disease without esophagitis; E11.9 Type 2 diabetes mellitus without complications; E03.9 Hypothyroidism, unspecified; Z88.5 Allergy status to narcotic agent; Z88.8 Allergy status to other drugs, medicaments and biological substances; Z79.82 Long term (current) use of aspirin; Z79.899 Other long term (current) drug therapy; Z79.4 Long term (current) use of insulin
CPT/HCPCS: 36415; 71045; 80053; 85025; 86140; 99284; A9270

== ENCOUNTER 2022-03-10 07:19 | Emergency (ER) | payer MEDICARE, OTHER ==
[2022-03-10] MEDS ORDERED: Sodium Chloride 0.9% 10 ML Syringe FLUSH PRN (07:54)
[2022-03-10] MEDS ORDERED: LORazepam 0.5 MG Tab PO ONE (07:57)
[2022-03-10 10:42] VITALS: BP 121/76; PULSE 64
== END 2022-03-10 10:40 | disposition home or self-care (01) ==
LOC: JD.ED 07:19
DX: R06.09 Other forms of dyspnea (principal); E78.00 Pure hypercholesterolemia, unspecified; I10 Essential (primary) hypertension; J44.9 Chronic obstructive pulmonary disease, unspecified; K21.9 Gastro-esophageal reflux disease without esophagitis; E11.9 Type 2 diabetes mellitus without complications; E03.9 Hypothyroidism, unspecified; Z79.82 Long term (current) use of aspirin; Z79.899 Other long term (current) drug therapy; Z88.8 Allergy status to other drugs, medicaments and biological substances; Z88.2 Allergy status to sulfonamides; Z86.16 Personal history of COVID-19
CPT/HCPCS: 36415; 71046; 80053; 82947; 83880; 84484; 85025; 85379; 93005; 99285; A9270; J3490

== ENCOUNTER 2022-09-15 09:58 | Emergency (ER) | payer MEDICARE, OTHER ==
[2022-09-15] MEDS ORDERED: Aspirin 81 MG Tab.Chew PO ONE (10:32)
[2022-09-15] MEDS ORDERED: Morphine 4 MG/ML Syringe IVPUSH ONE (10:32)
[2022-09-15] MEDS ORDERED: Ketorolac 15 MG/ML SDV IVPUSH ONE (15:10)
[2022-09-15 15:47] VITALS: BP 175/86; PULSE 56
== END 2022-09-15 15:47 | disposition home or self-care (01) ==
LOC: JD.ED 09:58
DX: M25.512 Pain in left shoulder (principal); E78.00 Pure hypercholesterolemia, unspecified; I10 Essential (primary) hypertension; J44.9 Chronic obstructive pulmonary disease, unspecified; E11.9 Type 2 diabetes mellitus without complications; E03.9 Hypothyroidism, unspecified; Z86.16 Personal history of COVID-19; Z88.5 Allergy status to narcotic agent; Z88.8 Allergy status to other drugs, medicaments and biological substances; Z88.2 Allergy status to sulfonamides; Z79.82 Long term (current) use of aspirin; Z79.4 Long term (current) use of insulin; Z79.899 Other long term (current) drug therapy
CPT/HCPCS: 36415; 71045; 80053; 83735; 84484; 85025; 85610; 93005; 96374; 96375; 99284; A9270; J1885; J2270

== ENCOUNTER 2022-09-22 23:44 | Emergency (ER) | payer MEDICARE, OTHER ==
[2022-09-23 00:03] VITALS: BP 158/90; PULSE 70
[2022-09-23] MEDS ORDERED: Ketorolac 30 MG/ML SDV IM ONE (00:25)
== END 2022-09-23 01:11 | disposition home or self-care (01) ==
LOC: JD.ED 23:44
DX: M54.12 Radiculopathy, cervical region (principal); E78.00 Pure hypercholesterolemia, unspecified; I10 Essential (primary) hypertension; J44.9 Chronic obstructive pulmonary disease, unspecified; E11.9 Type 2 diabetes mellitus without complications; E03.9 Hypothyroidism, unspecified; M19.90 Unspecified osteoarthritis, unspecified site; Z88.6 Allergy status to analgesic agent; Z88.5 Allergy status to narcotic agent; Z88.8 Allergy status to other drugs, medicaments and biological substances; Z88.2 Allergy status to sulfonamides; Z79.82 Long term (current) use of aspirin; Z79.4 Long term (current) use of insulin; Z79.899 Other long term (current) drug therapy
CPT/HCPCS: 96372; 99283; J1885

== ENCOUNTER 2022-09-24 03:54 | Emergency (ER) | payer MEDICARE, OTHER ==
[2022-09-24 04:08] VITALS: BP 164/92; PULSE 83
[2022-09-24] MEDS ORDERED: LORazepam 0.5 MG Tab PO ONE (04:30)
[2022-09-24] MEDS ORDERED: HYDROmorphone 0.5 MG/0.5 ML Syringe IM ONE (05:13)
== END 2022-09-24 05:59 | disposition home or self-care (01) ==
LOC: JD.ED 03:54
DX: M54.12 Radiculopathy, cervical region (principal); F41.9 Anxiety disorder, unspecified; I10 Essential (primary) hypertension; Z88.6 Allergy status to analgesic agent; Z88.5 Allergy status to narcotic agent; Z88.8 Allergy status to other drugs, medicaments and biological substances; Z88.2 Allergy status to sulfonamides; Z79.82 Long term (current) use of aspirin; Z79.899 Other long term (current) drug therapy; Z79.4 Long term (current) use of insulin; Z90.49 Acquired absence of other specified parts of digestive tract
CPT/HCPCS: 96372; 99283; A9270; J1170

== ENCOUNTER 2022-09-28 22:36 | Emergency (ER) | payer MEDICARE, OTHER ==
[2022-09-28 22:58] VITALS: BP 150/87; PULSE 86
== END 2022-09-28 23:01 ==
LOC: JD.ED 22:36
DX: Z53.21 Procedure and treatment not carried out due to patient leaving prior to being seen by health care provider (principal)
CPT/HCPCS: 82947

== ENCOUNTER 2022-10-15 06:55 | Emergency (ER) | payer MEDICARE, OTHER ==
[2022-10-15 07:15] VITALS: BP 150/76; PULSE 63
[2022-10-15] MEDS ORDERED: HYDROmorphone 0.5 MG/0.5 ML Syringe IM ONE (07:24)
[2022-10-15] MEDS ORDERED: Ketorolac 30 MG/ML SDV IM ONE (07:25)
[2022-10-15 08:12] LABS: ESTIMATED GFR 61 mL/min (>60)
== END 2022-10-15 10:25 | disposition home or self-care (01) ==
LOC: JD.ED 06:55
DX: N32.89 Other specified disorders of bladder (principal); F41.9 Anxiety disorder, unspecified; R10.9 Unspecified abdominal pain; E78.00 Pure hypercholesterolemia, unspecified; I10 Essential (primary) hypertension; E11.9 Type 2 diabetes mellitus without complications; E03.9 Hypothyroidism, unspecified; M19.90 Unspecified osteoarthritis, unspecified site; Z88.8 Allergy status to other drugs, medicaments and biological substances; Z88.5 Allergy status to narcotic agent; Z88.6 Allergy status to analgesic agent; Z88.2 Allergy status to sulfonamides; Z79.82 Long term (current) use of aspirin; Z79.4 Long term (current) use of insulin; Z79.899 Other long term (current) drug therapy
CPT/HCPCS: 36415; 72100; 73502; 74176; 80053; 81001; 85025; 85652; 86140; 96372; 99284; J1170; J1885

== ENCOUNTER 2022-10-20 05:55 | Emergency (ER) | payer MEDICARE, OTHER ==
[2022-10-20 06:14] VITALS: BP 147/89; PULSE 56
[2022-10-20] MEDS ORDERED: predniSONE 20 MG Tab PO ONE (07:22)
[2022-10-20] MEDS ORDERED: Acetaminophen/oxyCODONE 325-5 MG Tab PO ONE (07:22)
== END 2022-10-20 07:38 | disposition home or self-care (01) ==
LOC: JD.ED 05:55
DX: M54.42 Lumbago with sciatica, left side (principal); E78.00 Pure hypercholesterolemia, unspecified; I10 Essential (primary) hypertension; K21.9 Gastro-esophageal reflux disease without esophagitis; E11.9 Type 2 diabetes mellitus without complications; E03.9 Hypothyroidism, unspecified; Z86.16 Personal history of COVID-19; Z88.5 Allergy status to narcotic agent; Z88.8 Allergy status to other drugs, medicaments and biological substances; Z88.2 Allergy status to sulfonamides; Z79.82 Long term (current) use of aspirin; Z79.4 Long term (current) use of insulin; Z79.899 Other long term (current) drug therapy
CPT/HCPCS: 99283; A9270; J7512

== ENCOUNTER 2022-11-21 03:15 | Emergency (ER) | payer MEDICARE, OTHER ==
[2022-11-21 03:44] VITALS: BP 188/86; PULSE 85
[2022-11-21] MEDS: HYDROmorphone 1 MG/ML Syringe IM STA ×2 (04:44→05:08)
[2022-11-21] MEDS ORDERED: HYDROmorphone 1 MG/ML Syringe IM ONE (04:49)
[2022-11-21] MEDS ORDERED: oxyCODONE 5 MG Tab PO ONE ×2 (05:04→05:12)
[2022-11-21] MEDS ORDERED: Acetaminophen/oxyCODONE 325-5 MG Tab PO ONE (05:18)
== END 2022-11-21 05:00 | disposition home or self-care (01) ==
LOC: JD.ED 03:15
DX: M54.42 Lumbago with sciatica, left side (principal); G89.4 Chronic pain syndrome; E78.00 Pure hypercholesterolemia, unspecified; I10 Essential (primary) hypertension; J44.9 Chronic obstructive pulmonary disease, unspecified; E11.9 Type 2 diabetes mellitus without complications; K21.9 Gastro-esophageal reflux disease without esophagitis; E03.9 Hypothyroidism, unspecified; N40.0 Benign prostatic hyperplasia without lower urinary tract symptoms; Z86.16 Personal history of COVID-19; Z88.5 Allergy status to narcotic agent; Z88.2 Allergy status to sulfonamides; Z88.8 Allergy status to other drugs, medicaments and biological substances; Z79.82 Long term (current) use of aspirin; Z79.899 Other long term (current) drug therapy; Z79.4 Long term (current) use of insulin
CPT/HCPCS: 96372; 99283; A9270; J1170

== ENCOUNTER 2022-11-29 19:40 | Emergency (ER) | payer MEDICARE ==
[2022-11-29 20:01] VITALS: BP 150/76; PULSE 73
[2022-11-29] MEDS ORDERED: Pregabalin 75 MG Cap PO ONE (20:27)
[2022-11-29] MEDS ORDERED: Sodium Chloride 0.9% 10 ML Syringe FLUSH ONE (20:57)
[2022-11-29] MEDS ORDERED: Iopamidol 755 Mg/ML 100 ML Bottle IVPUSH ONE (20:57)
[2022-11-29] MEDS ORDERED: Sodium Chloride 0.9% 100 ML IV SCH (21:00)
[2022-11-29] MEDS ORDERED: LORazepam 1 MG Tab PO ONE (23:36)
== END 2022-11-29 23:55 | disposition home or self-care (01) ==
LOC: JD.ED 19:40
DX: R07.89 Other chest pain (principal); E11.42 Type 2 diabetes mellitus with diabetic polyneuropathy; N17.9 Acute kidney failure, unspecified; E78.00 Pure hypercholesterolemia, unspecified; I10 Essential (primary) hypertension; J44.9 Chronic obstructive pulmonary disease, unspecified; M19.90 Unspecified osteoarthritis, unspecified site; E03.9 Hypothyroidism, unspecified; Z88.6 Allergy status to analgesic agent; Z88.5 Allergy status to narcotic agent; Z88.2 Allergy status to sulfonamides; Z88.8 Allergy status to other drugs, medicaments and biological substances; Z79.82 Long term (current) use of aspirin; Z79.4 Long term (current) use of insulin; Z79.899 Other long term (current) drug therapy
CPT/HCPCS: 36415; 71045; 71275; 80053; 83880; 84484; 85025; 85379; 85610; 85730; 93005; 96360; 96361; 99285; A9270; J3490; Q9967; 93010; 99284

== ENCOUNTER 2022-12-07 07:18 | Emergency (ER) | payer MEDICARE, OTHER ==
[2022-12-07] MEDS ORDERED: Sodium Chloride 0.9% 10 ML Syringe FLUSH PRN (07:50)
[2022-12-07] MEDS ORDERED: HYDROmorphone 1 MG/ML Syringe IVPUSH ONE ×2 (07:51→09:28)
[2022-12-07] MEDS ORDERED: Metoprolol Tartrate 50 MG Tab PO ONE (10:47)
[2022-12-07 11:45] VITALS: BP 169/94; PULSE 102
== END 2022-12-07 11:15 | disposition home or self-care (01) ==
LOC: JD.ED 07:18
DX: I47.1 Supraventricular tachycardia (principal); R41.0 Disorientation, unspecified; G54.4 Lumbosacral root disorders, not elsewhere classified; R59.9 Enlarged lymph nodes, unspecified; E78.00 Pure hypercholesterolemia, unspecified; I10 Essential (primary) hypertension; J44.9 Chronic obstructive pulmonary disease, unspecified; E11.9 Type 2 diabetes mellitus without complications; E03.9 Hypothyroidism, unspecified; Z88.5 Allergy status to narcotic agent; Z88.2 Allergy status to sulfonamides; Z88.8 Allergy status to other drugs, medicaments and biological substances; Z79.82 Long term (current) use of aspirin; Z79.899 Other long term (current) drug therapy; Z79.4 Long term (current) use of insulin
CPT/HCPCS: 36415; 70450; 71045; 74176; 80053; 81001; 82947; 83605; 83735; 84484; 85025; 85610; 85652; 86140; 93005; 96374; 96376; 99285; A9270; G0103; J1170; J3490; 93010; 99284

== ENCOUNTER 2022-12-21 14:49 | Emergency (ER) | payer MEDICARE, OTHER ==
[2022-12-21 15:02] VITALS: BP 177/80; PULSE 63
[2022-12-21] MEDS ORDERED: Morphine 4 MG/ML Syringe IVPUSH ONE (18:38)
[2022-12-21] MEDS ORDERED: Lactated Ringers 1,000 ML IV ONE (18:38)
[2022-12-21] MEDS ORDERED: HYDROmorphone 0.5 MG/0.5 ML Syringe IVPUSH ONE ×3 (20:03→22:06)
[2022-12-21] MEDS ORDERED: Diazepam 2 MG Tab PO ONE (20:04)
[2022-12-21 20:33] LABS: CORONAVIRUS COVID-19 NAA POSITIVE (NEGATIVE)
[2022-12-21] MEDS ORDERED: HYDROmorphone 0.5 MG/0.5 ML Syringe ONE (22:07)
== END 2022-12-21 22:18 ==
LOC: SUPCPDRO 14:49 → JD.ED 14:49
DX: U07.1 COVID-19 (principal); C61 Malignant neoplasm of prostate; C79.51 Secondary malignant neoplasm of bone; M54.42 Lumbago with sciatica, left side; E78.00 Pure hypercholesterolemia, unspecified; I10 Essential (primary) hypertension; K21.9 Gastro-esophageal reflux disease without esophagitis; E03.9 Hypothyroidism, unspecified; N40.0 Benign prostatic hyperplasia without lower urinary tract symptoms; J44.9 Chronic obstructive pulmonary disease, unspecified; Z88.5 Allergy status to narcotic agent; Z88.2 Allergy status to sulfonamides; Z88.8 Allergy status to other drugs, medicaments and biological substances; Z79.82 Long term (current) use of aspirin; Z79.899 Other long term (current) drug therapy; Z79.4 Long term (current) use of insulin; Z86.16 Personal history of COVID-19
CPT/HCPCS: 0240U; 36415; 70450; 71045; 71250; 72125; 72128; 72131; 74176; 80053; 81001; 83605; 83690; 83735; 84100; 84484; 85025; 85610; 93005; 96374; 96375; 96376; 99285; A9270; J1170; J2270; J7120

== ENCOUNTER 2023-01-25 01:53 | Emergency (ER) | payer MEDICARE, OTHER ==
[2023-01-25] MEDS ORDERED: Acetaminophen/oxyCODONE 325-5 MG Tab PO ONE (03:40)
[2023-01-25 04:59] VITALS: BP 145/50; PULSE 73
== END 2023-01-25 04:59 ==
LOC: JD.ED 01:53
DX: S13.9XXA Sprain of joints and ligaments of unspecified parts of neck, initial encounter (principal); S00.03XA Contusion of scalp, initial encounter; S70.02XA Contusion of left hip, initial encounter; S40.012A Contusion of left shoulder, initial encounter; C61 Malignant neoplasm of prostate; C79.51 Secondary malignant neoplasm of bone; G89.4 Chronic pain syndrome; E78.00 Pure hypercholesterolemia, unspecified; I10 Essential (primary) hypertension; J44.9 Chronic obstructive pulmonary disease, unspecified; K21.9 Gastro-esophageal reflux disease without esophagitis; N40.0 Benign prostatic hyperplasia without lower urinary tract symptoms; E11.9 Type 2 diabetes mellitus without complications; Z86.16 Personal history of COVID-19; Z88.5 Allergy status to narcotic agent; Z88.6 Allergy status to analgesic agent; Z88.2 Allergy status to sulfonamides; Z88.8 Allergy status to other drugs, medicaments and biological substances; Z79.82 Long term (current) use of aspirin; Z79.899 Other long term (current) drug therapy; Z79.4 Long term (current) use of insulin; W18.30XA Fall on same level, unspecified, initial encounter; Y92.129 Unspecified place in nursing home as the place of occurrence of the external cause
CPT/HCPCS: 36415; 70450; 72125; 72170; 73020; 73030; 73552; 80053; 82553; 82947; 83615; 83735; 83880; 84484; 85025; 85610; 85730; 86140; 86850; 86900; 86901; 93005; 99285; A9270; 93010

== ENCOUNTER 2023-03-30 13:03 | Inpatient (IN) | payer MEDICARE, OTHER ==
[2023-03-30] MEDS ORDERED: Sodium Chloride 0.9% 10 ML Syringe FLUSH PRN (13:39)
[2023-03-30] MEDS ORDERED: HYDROmorphone 0.5 MG/0.5 ML Syringe IVPUSH ONE (13:40)
[2023-03-30 14:10] LABS: BASOPHILS ABSOLUTE AUTO 0.03 K/mm3 (0.01-0.08); BASOPHILS PERCENT AUTO 0.5 % (0.1-1.2); EOSINOPHILS ABSOLUTE AUTO 0.76 K/mm3 (0.04-0.54); EOSINOPHILS PERCENT AUTO 12.9 (0.8-7.0); HEMATOCRIT 35.5 % (40.1-51.0); HEMOGLOBIN 11.9 gm/dl (13.7-17.5); IMMATURE GRAN ABSOLUTE AUTO 0.04 K/mm3 (0.00-0.10); IMMATURE GRAN PERCENT AUTO 0.7 % (<=1.0); LYMPHOCYTES PERCENT AUTO 15.3 % (21.8-53.1); MEAN CORPUSCULAR HGB CONC 33.5 g/dl (32.2-35.5); MEAN CORPUSCULAR VOLUME 83.5 fl (79.0-92.2); MEAN PLATELET VOLUME 7.9 fl (9.4-12.3); MONOCYTES PERCENT AUTO 11.9 % (5.3-12.2); NEUTROPHILS ABSOLUTE AUTO 3.46 K/mm3 (1.78-5.38); NEUTROPHILS PERCENT AUTO 58.7 % (34.0-67.9); PLATELET COUNT,PLT 215 K/mm3 (163-337); RED BLOOD CELL COUNT 4.25 M/mm3 (4.63-6.08); WHITE BLOOD CELL COUNT,WBC 5.89 K/mm3 (4.23-9.07)
[2023-03-30] MEDS ORDERED: Ondansetron 4 MG/2 ML SDV IVPUSH ONE (14:10)
[2023-03-30 14:11] LABS: APPEARANCE,URINE CLEAR (Clear); BILIRUBIN,URINE NEGATIVE (Negative); COLOR,URINE YELLOW (Yellow); GLUCOSE,URINE NEGATIVE (Negative); KETONES,URINE NEGATIVE (Negative); LEUKOCYTE ESTERASE,URINE NEGATIVE (Negative); NITRITE,URINE NEGATIVE (Negative); OCCULT BLOOD,URINE 2+ (Negative); PROTEIN,URINE 2+ (Negative); UROBILINOGEN,URINE 0.2 (0.2-1.0)
[2023-03-30 14:25] LABS: BACTERIA,URINE FEW /hpf (FEW); MUCUS,URINE NOT SEEN /hpf (FEW); RBC,URINE 40-50 /hpf (0-5); SQUAMOUS EPITHELIAL CELLS,UR 0-5 /hpf (0-5)
[2023-03-30 14:30] LABS: ALBUMIN 3.1 g/dl (3.4-5.0); BILIRUBIN TOTAL 0.6 mg/dL (0.2-1.0); BUN/CREATININE RATIO 23.8 (14-18); CALCIUM 8.5 mg/dL (8.5-10.1); CREATININE 0.8 mg/dL (0.7-1.3); EST CRCL DRUG DOSING (CG) 78.14 mL/min; PROTEIN TOTAL,TP 6.2 g/dl (6.4-8.2)
[2023-03-30] MEDS ORDERED: Iopamidol 612 MG/ML 100 ML Bottle IVPUSH ONE ×2 (15:05→15:06)
[2023-03-30] MEDS ORDERED: Sodium Chloride 0.9% 10 ML Syringe FLUSH ONE (15:05)
[2023-03-30] MEDS ORDERED: Albuterol 6.7 GM Inhaler INH PRN (18:02)
[2023-03-30] MEDS ORDERED: HYDROmorphone 1 MG/ML Syringe IVPUSH PRN (18:06)
[2023-03-30] MEDS ORDERED: hydrALAZINE 20 MG/ML SDV IVPUSH PRN (18:10)
[2023-03-30] MEDS ORDERED: Ondansetron 4 MG/2 ML SDV IVPUSH PRN (18:10)
[2023-03-30] MEDS ORDERED: Psyllium Husk Powder Sugar Free 5.85 GM Packet PO PRN (18:10)
[2023-03-30] MEDS ORDERED: Tamsulosin 0.4 MG Cap.ER PO SCH (18:15)
[2023-03-30] MEDS ORDERED: Metoprolol Succinate 50 MG Tab.ER PO SCH ×2 (18:15→20:15)
[2023-03-30] MEDS ORDERED: Acetaminophen 325 MG Tab PO SCH (18:30)
[2023-03-30] MEDS ORDERED: Non-Formulary Medication 1 Each (Fluticasone Propion/Salmeterol [Advair Hfa 230-21 Mcg Inh IH SCH (21:00)
[2023-03-30] MEDS: Aspirin 81 MG Tab.EC PO SCH (21:32)
[2023-03-30] MEDS: Acetaminophen/oxyCODONE 325-5 MG Tab PO PRN (21:32)
[2023-03-30] MEDS: atorvaSTATin 20 MG Tab PO SCH (21:32)
[2023-03-30] MEDS: Acetaminophen 325 MG Tab PO SCH (21:33)
[2023-03-30] MEDS: Lidocaine 4% 1 each Patch TOP SCH (21:34)
[2023-03-30] MEDS: Insulin Lispro 100 Unit/ML 3 ML KwikPen SUBCUT SCH (21:42)
[2023-03-30] MEDS: Tamsulosin 0.4 MG Cap.ER PO SCH (21:51)
[2023-03-31] MEDS: traMADol 50 MG Tab PO PRN ×2 (01:28→23:51)
[2023-03-31] MEDS: Acetaminophen 325 MG Tab PO SCH ×4 (04:04→20:06)
[2023-03-31] MEDS: Acetaminophen/oxyCODONE 325-5 MG Tab PO PRN (06:27)
[2023-03-31] MEDS: Levothyroxine 75 MCG Tab PO SCH (06:30)
[2023-03-31] MEDS: Levothyroxine 100 MCG Tab PO SCH (06:30)
[2023-03-31] MEDS: Docusate Sodium 100 MG Cap PO PRN ×2 (06:32→23:51)
[2023-03-31] MEDS: Insulin Lispro 100 Unit/ML 3 ML KwikPen SUBCUT SCH ×4 (08:06→22:09)
[2023-03-31 08:26] LABS: BUN/CREATININE RATIO 23.3 (14-18); CALCIUM 8.2 mg/dL (8.5-10.1); CREATININE 0.6 mg/dL (0.7-1.3); EST CRCL DRUG DOSING (CG) 104.19 mL/min
[2023-03-31] MEDS: Losartan 25 MG Tab PO SCH (08:56)
[2023-03-31] MEDS: Tamsulosin 0.4 MG Cap.ER PO SCH (08:58)
[2023-03-31] MEDS: Insulin Glargine,Human Rec. Analog 100 Units/ML 3 ML Pen SUBCUT SCH (08:58)
[2023-03-31] MEDS: REMOVE LIDOCAINE TRDERM SCH (08:58)
[2023-03-31] MEDS: Metoprolol Succinate 50 MG Tab.ER PO SCH (08:58)
[2023-03-31] MEDS: Multivitamin Tab PO SCH (09:00)
[2023-03-31] MEDS ORDERED: Rivaroxaban 10 MG Tab PO SCH (09:00)
[2023-03-31 09:50] LABS: BASOPHILS ABSOLUTE AUTO 0.02 K/mm3 (0.01-0.08); BASOPHILS PERCENT AUTO 0.4 % (0.1-1.2); EOSINOPHILS ABSOLUTE AUTO 0.89 K/mm3 (0.04-0.54); EOSINOPHILS PERCENT AUTO 16.7 (0.8-7.0); HEMATOCRIT 34.8 % (40.1-51.0); HEMOGLOBIN 11.6 gm/dl (13.7-17.5); IMMATURE GRAN ABSOLUTE AUTO 0.03 K/mm3 (0.00-0.10); IMMATURE GRAN PERCENT AUTO 0.6 % (<=1.0); LYMPHOCYTES ABSOLUTE AUTO 1.12 K/mm3 (1.32-3.57); MEAN CORPUSCULAR HEMOGLOBIN 28.6 pg (25.7-32.2); MEAN CORPUSCULAR HGB CONC 33.3 g/dl (32.2-35.5); MEAN CORPUSCULAR VOLUME 85.7 fl (79.0-92.2); MEAN PLATELET VOLUME 8.2 fl (9.4-12.3); MONOCYTES ABSOLUTE AUTO 0.76 K/mm3 (0.30-0.82); MONOCYTES PERCENT AUTO 14.2 % (5.3-12.2); NEUTROPHILS ABSOLUTE AUTO 2.52 K/mm3 (1.78-5.38); NEUTROPHILS PERCENT AUTO 47.1 % (34.0-67.9); PLATELET COUNT,PLT 182 K/mm3 (163-337); RED BLOOD CELL COUNT 4.06 M/mm3 (4.63-6.08); WHITE BLOOD CELL COUNT,WBC 5.34 K/mm3 (4.23-9.07)
[2023-03-31] MEDS: Fluticasone NASAL Spray 16 GM Bottle NASBOTH PRN (11:15)
[2023-03-31] MEDS: atorvaSTATin 20 MG Tab PO SCH (20:06)
[2023-03-31] MEDS: Heparin Sodium 5,000 Units/ML Vial SUBCUT SCH (20:06)
[2023-03-31] MEDS: Dexamethasone 4 MG Tab PO SCH (20:06)
[2023-03-31] MEDS: Aspirin 81 MG Tab.EC PO SCH (20:06)
[2023-03-31] MEDS: Lidocaine 4% 1 each Patch TOP SCH (20:07)
[2023-04-01] MEDS: traZODone 50 MG Tab PO PRN ×2 (00:57→21:43)
[2023-04-01] MEDS: Acetaminophen 325 MG Tab PO SCH ×5 (04:03→20:19)
[2023-04-01] MEDS: Heparin Sodium 5,000 Units/ML Vial SUBCUT SCH ×3 (04:51→20:19)
[2023-04-01] MEDS: Levothyroxine 100 MCG Tab PO SCH (05:00)
[2023-04-01] MEDS: Levothyroxine 75 MCG Tab PO SCH (05:00)
[2023-04-01] MEDS: traMADol 50 MG Tab PO PRN (06:18)
[2023-04-01 06:30] LABS: BASOPHILS ABSOLUTE AUTO 0.01 K/mm3 (0.01-0.08); BASOPHILS PERCENT AUTO 0.1 % (0.1-1.2); EOSINOPHILS ABSOLUTE AUTO 0.01 K/mm3 (0.04-0.54); EOSINOPHILS PERCENT AUTO 0.1 (0.8-7.0); HEMATOCRIT 35.6 % (40.1-51.0); IMMATURE GRAN ABSOLUTE AUTO 0.01 K/mm3 (0.00-0.10); IMMATURE GRAN PERCENT AUTO 0.1 % (<=1.0); LYMPHOCYTES ABSOLUTE AUTO 0.62 K/mm3 (1.32-3.57); LYMPHOCYTES PERCENT AUTO 8.7 % (21.8-53.1); MEAN CORPUSCULAR HEMOGLOBIN 28.5 pg (25.7-32.2); MEAN CORPUSCULAR HGB CONC 33.7 g/dl (32.2-35.5); MEAN CORPUSCULAR VOLUME 84.6 fl (79.0-92.2); MEAN PLATELET VOLUME 8.3 fl (9.4-12.3); MONOCYTES ABSOLUTE AUTO 0.31 K/mm3 (0.30-0.82); MONOCYTES PERCENT AUTO 4.4 % (5.3-12.2); NEUTROPHILS ABSOLUTE AUTO 6.16 K/mm3 (1.78-5.38); NEUTROPHILS PERCENT AUTO 86.6 % (34.0-67.9); PLATELET COUNT,PLT 169 K/mm3 (163-337); RED BLOOD CELL COUNT 4.21 M/mm3 (4.63-6.08); WHITE BLOOD CELL COUNT,WBC 7.12 K/mm3 (4.23-9.07)
[2023-04-01 06:46] LABS: ANION GAP 14.2 (5-15); BUN/CREATININE RATIO 18.3 (14-18); CALCIUM 8.6 mg/dL (8.5-10.1); CREATININE 0.6 mg/dL (0.7-1.3); EST CRCL DRUG DOSING (CG) 104.19 mL/min; POTASSIUM,K 4.2 mEq/L (3.5-5.1)
[2023-04-01] MEDS: Insulin Lispro 100 Unit/ML 3 ML KwikPen SUBCUT SCH ×4 (07:44→20:34)
[2023-04-01] MEDS: Insulin Glargine,Human Rec. Analog 100 Units/ML 3 ML Pen SUBCUT SCH ×2 (07:45→10:23)
[2023-04-01] MEDS: Tamsulosin 0.4 MG Cap.ER PO SCH ×2 (07:53→10:23)
[2023-04-01] MEDS: Metoprolol Succinate 50 MG Tab.ER PO SCH ×2 (07:53→10:24)
[2023-04-01] MEDS: Losartan 25 MG Tab PO SCH ×2 (07:53→10:23)
[2023-04-01] MEDS: Dexamethasone 4 MG Tab PO SCH ×3 (07:54→20:19)
[2023-04-01] MEDS: Multivitamin Tab PO SCH ×2 (07:54→10:24)
[2023-04-01] MEDS ORDERED: Gadobenate Dimeglumine 529 MG/ML 20 ML SDV IVPUSH ONE (10:45)
[2023-04-01] MEDS ORDERED: Sodium Chloride 0.9% 10 ML Syringe FLUSH ONE (10:46)
[2023-04-01] MEDS: LORazepam 2 MG/ML SDV IVPUSH ONE ×2 (10:55→10:57)
[2023-04-01] MEDS: Fluticasone NASAL Spray 16 GM Bottle NASBOTH PRN (11:18)
[2023-04-01] MEDS: REMOVE LIDOCAINE TRDERM SCH (12:52)
[2023-04-01] MEDS: Docusate Sodium 100 MG Cap PO PRN (14:51)
[2023-04-01] MEDS ORDERED: Insulin Glargine,Human Rec. Analog 100 Units/ML 3 ML Pen SUBCUT ONE (16:30)
[2023-04-01] MEDS: Aspirin 81 MG Tab.EC PO SCH (20:19)
[2023-04-01] MEDS: atorvaSTATin 20 MG Tab PO SCH (20:19)
[2023-04-01] MEDS: Lidocaine 4% 1 each Patch TOP SCH (20:20)
[2023-04-02] MEDS: Acetaminophen 325 MG Tab PO SCH ×2 (03:29→08:10)
[2023-04-02] MEDS: traMADol 50 MG Tab PO PRN (05:41)
[2023-04-02] MEDS: Levothyroxine 75 MCG Tab PO SCH (05:42)
[2023-04-02] MEDS: Levothyroxine 100 MCG Tab PO SCH (05:42)
[2023-04-02] MEDS: Heparin Sodium 5,000 Units/ML Vial SUBCUT SCH ×2 (05:42→12:38)
[2023-04-02 06:59] LABS: EOSINOPHILS PERCENT AUTO 0 (0.8-7.0); HEMATOCRIT 38.7 % (40.1-51.0); IMMATURE GRAN ABSOLUTE AUTO 0.02 K/mm3 (0.00-0.10); IMMATURE GRAN PERCENT AUTO 0.2 % (<=1.0); LYMPHOCYTES ABSOLUTE AUTO 0.66 K/mm3 (1.32-3.57); LYMPHOCYTES PERCENT AUTO 7.5 % (21.8-53.1); MEAN CORPUSCULAR HEMOGLOBIN 28.5 pg (25.7-32.2); MEAN CORPUSCULAR HGB CONC 33.6 g/dl (32.2-35.5); MEAN CORPUSCULAR VOLUME 84.9 fl (79.0-92.2); MEAN PLATELET VOLUME 8.4 fl (9.4-12.3); MONOCYTES ABSOLUTE AUTO 0.46 K/mm3 (0.30-0.82); MONOCYTES PERCENT AUTO 5.3 % (5.3-12.2); NEUTROPHILS ABSOLUTE AUTO 7.62 K/mm3 (1.78-5.38); PLATELET COUNT,PLT 194 K/mm3 (163-337); RED BLOOD CELL COUNT 4.56 M/mm3 (4.63-6.08); WHITE BLOOD CELL COUNT,WBC 8.76 K/mm3 (4.23-9.07)
[2023-04-02 07:19] LABS: ANION GAP 13.3 (5-15); BUN/CREATININE RATIO 27.1 (14-18); CREATININE 0.7 mg/dL (0.7-1.3); EST CRCL DRUG DOSING (CG) 89.3 mL/min; POTASSIUM,K 4.3 mEq/L (3.5-5.1)
[2023-04-02] MEDS: Tamsulosin 0.4 MG Cap.ER PO SCH (08:05)
[2023-04-02] MEDS: Losartan 25 MG Tab PO SCH (08:08)
[2023-04-02] MEDS: Metoprolol Succinate 50 MG Tab.ER PO SCH (08:09)
[2023-04-02] MEDS: Multivitamin Tab PO SCH (08:09)
[2023-04-02] MEDS: Dexamethasone 4 MG Tab PO SCH (08:10)
[2023-04-02] MEDS: Insulin Lispro 100 Unit/ML 3 ML KwikPen SUBCUT SCH ×2 (08:11→12:38)
[2023-04-02] MEDS ORDERED: Insulin Glargine,Human Rec. Analog 100 Units/ML 3 ML Pen SUBCUT SCH (09:00)
[2023-04-02] MEDS: REMOVE LIDOCAINE TRDERM SCH (09:28)
[2023-04-02 12:08] VITALS: BP 129/63; PULSE 69
[2023-04-02] MEDS: Docusate Sodium 100 MG Cap PO PRN (12:39)
== END 2023-04-02 15:51 | disposition home or self-care (01) | DRG 948 ==
LOC: JD.ED 13:03 → JD.MS 17:11 → UNDOADMIN 17:54 → UNDODISIN 04-02 15:51
PROVIDERS: ADMIT Internal Medicine; ATTEND Internal Medicine
DX: G89.3 Neoplasm related pain (acute) (chronic) (principal); C79.51 Secondary malignant neoplasm of bone; R53.1 Weakness; M54.50 Low back pain, unspecified; Z74.09 Other reduced mobility; C61 Malignant neoplasm of prostate; J44.9 Chronic obstructive pulmonary disease, unspecified; I10 Essential (primary) hypertension; E11.9 Type 2 diabetes mellitus without complications; E78.5 Hyperlipidemia, unspecified; E03.9 Hypothyroidism, unspecified; M19.90 Unspecified osteoarthritis, unspecified site; Z79.82 Long term (current) use of aspirin; Z79.899 Other long term (current) drug therapy; F41.9 Anxiety disorder, unspecified; Z95.1 Presence of aortocoronary bypass graft; F32.A Depression, unspecified; K21.9 Gastro-esophageal reflux disease without esophagitis; N40.0 Benign prostatic hyperplasia without lower urinary tract symptoms; H54.7 Unspecified visual loss; E78.00 Pure hypercholesterolemia, unspecified; F03.90 Unspecified dementia, unspecified severity, without behavioral disturbance, psychotic disturbance, mood disturbance, and anxiety; Z79.890 Hormone replacement therapy; Z79.4 Long term (current) use of insulin; Z88.2 Allergy status to sulfonamides; Z88.5 Allergy status to narcotic agent; Z88.8 Allergy status to other drugs, medicaments and biological substances; Z86.16 Personal history of COVID-19
CPT/HCPCS: 36415; 74177; 80053; 81001; 85025; 96374; 96375; 99284; J1170; J2405; J3490 ×2; Q9967 ×2; 72157; 72157-26; 72158; 72158-26; 80048; 82947; 97116-GP; 97162-GP; 97166-GO; 97530-GO; 99223; 99232; 99239; 99285; A9270-GY; A9577; J1644; J1815; J1815-GY; J2060; J8540

== ENCOUNTER 2023-05-01 22:29 | Inpatient (IN) | payer MEDICARE, OTHER ==
[2023-05-01] MEDS ORDERED: HYDROmorphone 0.5 MG/0.5 ML Syringe IVPUSH ONE ×3 (23:00→23:35)
[2023-05-01] MEDS ORDERED: Ondansetron 4 MG/2 ML SDV ONE (23:15)
[2023-05-01] MEDS ORDERED: Ondansetron 4 MG/2 ML SDV IVPUSH ONE (23:15)
[2023-05-01 23:16] LABS: BASOPHILS ABSOLUTE AUTO 0.01 K/mm3 (0.01-0.08); BASOPHILS PERCENT AUTO 0.1 % (0.1-1.2); EOSINOPHILS ABSOLUTE AUTO 0.25 K/mm3 (0.04-0.54); EOSINOPHILS PERCENT AUTO 3.5 (0.8-7.0); HEMATOCRIT 38.6 % (40.1-51.0); HEMOGLOBIN 12.9 gm/dl (13.7-17.5); IMMATURE GRAN ABSOLUTE AUTO 0.23 K/mm3 (0.00-0.10); IMMATURE GRAN PERCENT AUTO 3.2 % (<=1.0); LYMPHOCYTES ABSOLUTE AUTO 0.78 K/mm3 (1.32-3.57); LYMPHOCYTES PERCENT AUTO 10.8 % (21.8-53.1); MEAN CORPUSCULAR HGB CONC 33.4 g/dl (32.2-35.5); MEAN CORPUSCULAR VOLUME 89.8 fl (79.0-92.2); MONOCYTES ABSOLUTE AUTO 0.55 K/mm3 (0.30-0.82); MONOCYTES PERCENT AUTO 7.6 % (5.3-12.2); NEUTROPHILS ABSOLUTE AUTO 5.37 K/mm3 (1.78-5.38); NEUTROPHILS PERCENT AUTO 74.8 % (34.0-67.9); PLATELET COUNT,PLT 163 K/mm3 (163-337); WHITE BLOOD CELL COUNT,WBC 7.19 K/mm3 (4.23-9.07)
[2023-05-01] MEDS ORDERED: HYDROmorphone 0.5 MG/0.5 ML Syringe ONE (23:28)
[2023-05-01 23:34] LABS: A/G RATIO 0.9 (1-2); ALBUMIN 2.7 g/dl (3.4-5.0); ANION GAP 14.9 (5-15); BILIRUBIN TOTAL 0.5 mg/dL (0.2-1.0); EST CRCL DRUG DOSING (CG) 62.51 mL/min; POTASSIUM,K 4.9 mEq/L (3.5-5.1)
[2023-05-01 23:48] LABS: CALCIUM 7.8 mg/dL (8.5-10.1)
[2023-05-01 23:54] LABS: PROTEIN TOTAL,TP 5.7 g/dl (6.4-8.2)
[2023-05-02] MEDS ORDERED: Acetaminophen/oxyCODONE 325-5 MG Tab PO ONE (00:18)
[2023-05-02] MEDS ORDERED: LORazepam 2 MG/ML SDV ONE (02:46)
[2023-05-02] MEDS ORDERED: LORazepam 2 MG/ML SDV IVPUSH ONE ×2 (02:54→03:10)
[2023-05-02 04:07] LABS: APPEARANCE,URINE CLEAR (Clear); BILIRUBIN,URINE NEGATIVE (Negative); COLOR,URINE YELLOW (Yellow); GLUCOSE,URINE TRACE (Negative); KETONES,URINE NEGATIVE (Negative); LEUKOCYTE ESTERASE,URINE NEGATIVE (Negative); NITRITE,URINE NEGATIVE (Negative); OCCULT BLOOD,URINE TRACE-INTACT (Negative); PROTEIN,URINE 2+ (Negative); UROBILINOGEN,URINE 0.2 (0.2-1.0)
[2023-05-02] MEDS ORDERED: Haloperidol Lactate 5 MG/ML SDV IVPUSH ONE (04:07)
[2023-05-02 04:17] LABS: EPITHELIAL CELLS,URINE 0-5 /hpf (0-5)
[2023-05-02 04:18] LABS: BACTERIA,URINE FEW /hpf (FEW); MUCUS,URINE FEW /hpf (FEW)
[2023-05-02] MEDS ORDERED: QUEtiapine 100 MG Tab PO ONE (07:23)
[2023-05-02] MEDS ORDERED: Docusate Sodium 100 MG Cap PO PRN (07:53)
[2023-05-02] MEDS ORDERED: HYDROmorphone 0.5 MG/0.5 ML Syringe IVPUSH PRN (07:53)
[2023-05-02] MEDS ORDERED: Ondansetron 4 MG/2 ML SDV IV PRN (07:53)
[2023-05-02] MEDS ORDERED: Naloxone 0.4 MG/ML SDV IVPUSH PRN (07:53)
[2023-05-02] MEDS: Sodium Chloride 0.9% 1,000 ML IV SCH ×2 (09:15→22:31)
[2023-05-02] MEDS: Insulin Regular, Human 100 Units/ML 3 ML Vial SUBCUT SCH ×3 (10:58→18:21)
[2023-05-02] MEDS: Heparin Sodium 5,000 Units/ML Vial SUBCUT SCH ×3 (10:58→23:24)
[2023-05-02] MEDS: oxyCODONE 5 MG Tab PO PRN ×2 (15:49→23:25)
[2023-05-02] MEDS: Acetaminophen 325 MG Tab PO PRN (15:49)
[2023-05-03] MEDS: Acetaminophen 325 MG Tab PO PRN ×2 (03:20→10:06)
[2023-05-03] MEDS: oxyCODONE 5 MG Tab PO PRN ×3 (03:21→22:43)
[2023-05-03 05:25] LABS: BASOPHILS ABSOLUTE AUTO 0.01 K/mm3 (0.01-0.08); BASOPHILS PERCENT AUTO 0.2 % (0.1-1.2); EOSINOPHILS ABSOLUTE AUTO 0.17 K/mm3 (0.04-0.54); EOSINOPHILS PERCENT AUTO 2.8 (0.8-7.0); HEMATOCRIT 36.2 % (40.1-51.0); HEMOGLOBIN 12.1 gm/dl (13.7-17.5); IMMATURE GRAN ABSOLUTE AUTO 0.12 K/mm3 (0.00-0.10); LYMPHOCYTES ABSOLUTE AUTO 0.73 K/mm3 (1.32-3.57); MEAN CORPUSCULAR HGB CONC 33.4 g/dl (32.2-35.5); MEAN CORPUSCULAR VOLUME 89.8 fl (79.0-92.2); MEAN PLATELET VOLUME 7.7 fl (9.4-12.3); MONOCYTES ABSOLUTE AUTO 0.47 K/mm3 (0.30-0.82); MONOCYTES PERCENT AUTO 7.7 % (5.3-12.2); NEUTROPHILS ABSOLUTE AUTO 4.58 K/mm3 (1.78-5.38); NEUTROPHILS PERCENT AUTO 75.3 % (34.0-67.9); PLATELET COUNT,PLT 117 K/mm3 (163-337); RED BLOOD CELL COUNT 4.03 M/mm3 (4.63-6.08); WHITE BLOOD CELL COUNT,WBC 6.08 K/mm3 (4.23-9.07)
[2023-05-03 06:04] LABS: A/G RATIO 0.9 (1-2); ALBUMIN 2.4 g/dl (3.4-5.0); ANION GAP 8.3 (5-15); BILIRUBIN TOTAL 0.7 mg/dL (0.2-1.0); BUN/CREATININE RATIO 18.6 (14-18); CALCIUM 7.2 mg/dL (8.5-10.1); CREATININE 0.7 mg/dL (0.7-1.3); EST CRCL DRUG DOSING (CG) 89.3 mL/min; POTASSIUM,K 4.3 mEq/L (3.5-5.1); PROTEIN TOTAL,TP 5.2 g/dl (6.4-8.2)
[2023-05-03] MEDS ORDERED: Fluticasone NASAL Spray 16 GM Bottle NASBOTH PRN (06:41)
[2023-05-03] MEDS ORDERED: Carboxymethylcellulose Sodium 1% Ophth Gel 15 ML Bottle EYEBOTH PRN (06:41)
[2023-05-03] MEDS ORDERED: Albuterol 6.7 GM Inhaler INH PRN (06:56)
[2023-05-03] MEDS ORDERED: Dexamethasone 4 MG Tab PO SCH (09:00)
[2023-05-03] MEDS: Heparin Sodium 5,000 Units/ML Vial SUBCUT SCH ×3 (10:03→23:51)
[2023-05-03] MEDS: Clotrimazole 10 MG Troche PO SCH ×5 (10:04→21:03)
[2023-05-03] MEDS: Metoprolol Succinate 50 MG Tab.ER PO SCH (10:04)
[2023-05-03] MEDS: Tamsulosin 0.4 MG Cap.ER PO SCH (10:04)
[2023-05-03] MEDS: Insulin Regular, Human 100 Units/ML 3 ML Vial SUBCUT SCH ×3 (10:05→18:02)
[2023-05-03] MEDS: Finasteride 5 MG Tab PO SCH (10:05)
[2023-05-03] MEDS: Cholecalciferol (Vitamin D3) 5,000 UNIT Cap PO SCH (10:05)
[2023-05-03] MEDS: Losartan 25 MG Tab PO SCH (10:05)
[2023-05-03] MEDS: Lidocaine 4% 1 each Patch TOP SCH (10:06)
[2023-05-03] MEDS: Levothyroxine 50 MCG Tab PO SCH (11:13)
[2023-05-03] MEDS: oxyCODONE ER 10 MG TAB.ER PO PRN (19:54)
[2023-05-03] MEDS: Aspirin 81 MG Tab.EC PO SCH ×2 (19:54→21:03)
[2023-05-04] MEDS: oxyCODONE 5 MG Tab PO PRN ×2 (04:50→12:59)
[2023-05-04 06:04] LABS: A/G RATIO 0.8 (1-2); ALBUMIN 2.5 g/dl (3.4-5.0); ANION GAP 11.7 (5-15); BILIRUBIN TOTAL 0.9 mg/dL (0.2-1.0); BUN/CREATININE RATIO 18.6 (14-18); CALCIUM 7.8 mg/dL (8.5-10.1); CREATININE 0.7 mg/dL (0.7-1.3); EST CRCL DRUG DOSING (CG) 89.3 mL/min; POTASSIUM,K 4.7 mEq/L (3.5-5.1); PROTEIN TOTAL,TP 5.8 g/dl (6.4-8.2)
[2023-05-04 06:06] LABS: BASOPHILS ABSOLUTE AUTO 0.01 K/mm3 (0.01-0.08); BASOPHILS PERCENT AUTO 0.2 % (0.1-1.2); EOSINOPHILS ABSOLUTE AUTO 0.08 K/mm3 (0.04-0.54); EOSINOPHILS PERCENT AUTO 1.5 (0.8-7.0); HEMATOCRIT 36.9 % (40.1-51.0); HEMOGLOBIN 12.4 gm/dl (13.7-17.5); IMMATURE GRAN ABSOLUTE AUTO 0.12 K/mm3 (0.00-0.10); IMMATURE GRAN PERCENT AUTO 2.2 % (<=1.0); LYMPHOCYTES PERCENT AUTO 12.9 % (21.8-53.1); MEAN CORPUSCULAR HEMOGLOBIN 30.2 pg (25.7-32.2); MEAN CORPUSCULAR HGB CONC 33.6 g/dl (32.2-35.5); MEAN CORPUSCULAR VOLUME 89.8 fl (79.0-92.2); MONOCYTES ABSOLUTE AUTO 0.46 K/mm3 (0.30-0.82); MONOCYTES PERCENT AUTO 8.5 % (5.3-12.2); NEUTROPHILS ABSOLUTE AUTO 4.04 K/mm3 (1.78-5.38); NEUTROPHILS PERCENT AUTO 74.7 % (34.0-67.9); PLATELET COUNT,PLT 135 K/mm3 (163-337); RED BLOOD CELL COUNT 4.11 M/mm3 (4.63-6.08); WHITE BLOOD CELL COUNT,WBC 5.41 K/mm3 (4.23-9.07)
[2023-05-04] MEDS: Levothyroxine 50 MCG Tab PO SCH (06:10)
[2023-05-04] MEDS: Clotrimazole 10 MG Troche PO SCH ×2 (06:10→09:30)
[2023-05-04] MEDS ORDERED: Insulin Glarg,Human.Rec.Analog 100 Unit/ML 10 ML Vial SUBCUT SCH (09:00)
[2023-05-04] MEDS: Heparin Sodium 5,000 Units/ML Vial SUBCUT SCH (09:24)
[2023-05-04] MEDS: Lidocaine 4% 1 each Patch TOP SCH (09:26)
[2023-05-04] MEDS: Finasteride 5 MG Tab PO SCH (09:26)
[2023-05-04] MEDS: oxyCODONE ER 10 MG TAB.ER PO PRN (09:27)
[2023-05-04] MEDS: Tamsulosin 0.4 MG Cap.ER PO SCH (09:27)
[2023-05-04] MEDS: Metoprolol Succinate 50 MG Tab.ER PO SCH (09:28)
[2023-05-04] MEDS: Losartan 25 MG Tab PO SCH (09:28)
[2023-05-04] MEDS: Insulin Regular, Human 100 Units/ML 3 ML Vial SUBCUT SCH (09:28)
[2023-05-04] MEDS: Cholecalciferol (Vitamin D3) 5,000 UNIT Cap PO SCH (09:29)
[2023-05-04 09:32] VITALS: BP 129/59; PULSE 80
[2023-05-04] MEDS ORDERED: Insulin Glargine,Human Rec. Analog 100 Units/ML 3 ML Pen SUBCUT SCH ×2 (09:38→10:00)
[2023-05-04] MEDS ORDERED: Insulin Lispro 100 Unit/ML 3 ML KwikPen SUBCUT ONE (11:00)
[2023-05-04] MEDS: Acetaminophen 325 MG Tab PO PRN (12:58)
== END 2023-05-04 13:30 | disposition home or self-care (01) | DRG 948 ==
LOC: JD.ED 22:29 → JD.MS 05-02 07:53
PROVIDERS: ADMIT Internal Medicine; ATTEND Internal Medicine
DX: G89.3 Neoplasm related pain (acute) (chronic) (principal); C79.51 Secondary malignant neoplasm of bone; C61 Malignant neoplasm of prostate; F03.90 Unspecified dementia, unspecified severity, without behavioral disturbance, psychotic disturbance, mood disturbance, and anxiety; Z66 Do not resuscitate; G30.9 Alzheimer's disease, unspecified; F02.80 Dementia in other diseases classified elsewhere, unspecified severity, without behavioral disturbance, psychotic disturbance, mood disturbance, and anxiety; I10 Essential (primary) hypertension; Z96.659 Presence of unspecified artificial knee joint; K59.00 Constipation, unspecified; N40.0 Benign prostatic hyperplasia without lower urinary tract symptoms; M19.90 Unspecified osteoarthritis, unspecified site; F41.9 Anxiety disorder, unspecified; F32.A Depression, unspecified; E11.9 Type 2 diabetes mellitus without complications; E03.9 Hypothyroidism, unspecified; Z98.890 Other specified postprocedural states; Z90.49 Acquired absence of other specified parts of digestive tract; E78.00 Pure hypercholesterolemia, unspecified; K21.9 Gastro-esophageal reflux disease without esophagitis; Z79.4 Long term (current) use of insulin; Z79.82 Long term (current) use of aspirin; Z79.899 Other long term (current) drug therapy; Z88.5 Allergy status to narcotic agent; Z88.2 Allergy status to sulfonamides; Z88.8 Allergy status to other drugs, medicaments and biological substances; Z95.1 Presence of aortocoronary bypass graft; Z86.16 Personal history of COVID-19
CPT/HCPCS: 36415; 80053; 81001; 82947; 83735; 85025; 96374; 96375; 96376; 97116-GP; 97162-GP; 97166-GO; 99223; 99233; 99239; 99284-25; 99285; A9270-GY; J1170; J1630; J1644; J1815; J1815-GY; J2060; J2405; J7030; J8540

== ENCOUNTER 2023-05-08 08:50 | Inpatient (IN) | payer MEDICARE, OTHER ==
[2023-05-08 10:07] LABS: BASOPHILS ABSOLUTE AUTO 0.02 K/mm3 (0.01-0.08); BASOPHILS PERCENT AUTO 0.2 % (0.1-1.2); EOSINOPHILS ABSOLUTE AUTO 0.16 K/mm3 (0.04-0.54); EOSINOPHILS PERCENT AUTO 1.8 (0.8-7.0); HEMATOCRIT 36.4 % (40.1-51.0); HEMOGLOBIN 12.1 gm/dl (13.7-17.5); IMMATURE GRAN ABSOLUTE AUTO 0.07 K/mm3 (0.00-0.10); IMMATURE GRAN PERCENT AUTO 0.8 % (<=1.0); LYMPHOCYTES PERCENT AUTO 6.9 % (21.8-53.1); MEAN CORPUSCULAR HEMOGLOBIN 29.7 pg (25.7-32.2); MEAN CORPUSCULAR HGB CONC 33.2 g/dl (32.2-35.5); MEAN CORPUSCULAR VOLUME 89.2 fl (79.0-92.2); MEAN PLATELET VOLUME 7.9 fl (9.4-12.3); MONOCYTES ABSOLUTE AUTO 0.73 K/mm3 (0.30-0.82); MONOCYTES PERCENT AUTO 8.4 % (5.3-12.2); NEUTROPHILS ABSOLUTE AUTO 7.09 K/mm3 (1.78-5.38); NEUTROPHILS PERCENT AUTO 81.9 % (34.0-67.9); PLATELET COUNT,PLT 156 K/mm3 (163-337); RED BLOOD CELL COUNT 4.08 M/mm3 (4.63-6.08); WHITE BLOOD CELL COUNT,WBC 8.67 K/mm3 (4.23-9.07)
[2023-05-08 10:14] LABS: INR 0.99; PROTHROMBIN TIME 10.6 SECONDS (9.7-12.0)
[2023-05-08 10:21] LABS: A/G RATIO 0.9 (1-2); ALBUMIN 2.8 g/dl (3.4-5.0); ANION GAP 11.8 (5-15); BUN/CREATININE RATIO 22.5 (14-18); CALCIUM 8.4 mg/dL (8.5-10.1); CREATININE 0.8 mg/dL (0.7-1.3); EST CRCL DRUG DOSING (CG) 78.14 mL/min; MAGNESIUM 1.8 mg/dL (1.8-2.4); POTASSIUM,K 4.8 mEq/L (3.5-5.1)
[2023-05-08] MEDS ORDERED: diphenhydrAMINE 50 MG/ML SDV IVPUSH ONE (11:08)
[2023-05-08] MEDS ORDERED: Bisacodyl 5 MG Tab PO PRN (12:57)
[2023-05-08] MEDS ORDERED: Glucose Gel 15 GM in 37.5 GM Tube PO PRN (12:57)
[2023-05-08] MEDS ORDERED: Ondansetron 4 MG Tab.DIS PO PRN (12:57)
[2023-05-08] MEDS ORDERED: Ondansetron 4 MG/2 ML SDV IV PRN (12:57)
[2023-05-08] MEDS ORDERED: Albuterol/Ipratropium 3.0-0.5 MG/3 ML Neb Soln NEB PRN (12:57)
[2023-05-08] MEDS ORDERED: Polyethylene Glycol 3350 Powder 17 GM Packet PO PRN (12:57)
[2023-05-08 13:57] LABS: APPEARANCE,URINE CLEAR (Clear); BILIRUBIN,URINE NEGATIVE (Negative); COLOR,URINE YELLOW (Yellow); GLUCOSE,URINE 1+ (Negative); KETONES,URINE NEGATIVE (Negative); LEUKOCYTE ESTERASE,URINE NEGATIVE (Negative); NITRITE,URINE NEGATIVE (Negative); OCCULT BLOOD,URINE NEGATIVE (Negative); PROTEIN,URINE 1+ (Negative); UROBILINOGEN,URINE 0.2 (0.2-1.0)
[2023-05-08 14:18] LABS: RBC,URINE 0-5 /hpf (0-5); SQUAMOUS EPITHELIAL CELLS,UR 0-5 /hpf (0-5); WBC,URINE 0-5 /hpf (0-5)
[2023-05-08 14:19] LABS: BACTERIA,URINE RARE /hpf (FEW); MUCUS,URINE NOT SEEN /hpf (FEW)
[2023-05-08] MEDS: oxyCODONE 5 MG Tab PO PRN (14:53)
[2023-05-08] MEDS: Sodium Chloride 0.9% 1,000 ML IV SCH (14:53)
[2023-05-08] MEDS: Docusate Sodium 100 MG Cap PO PRN (16:15)
[2023-05-08] MEDS: Insulin Lispro 100 Unit/ML 3 ML KwikPen SUBCUT SCH ×2 (17:41→21:49)
[2023-05-08] MEDS: Temazepam 7.5 MG Cap PO PRN (20:30)
[2023-05-08] MEDS: oxyCODONE ER 20 MG TAB.ER PO SCH (20:30)
[2023-05-09] MEDS: Sodium Chloride 0.9% 1,000 ML IV SCH (01:52)
[2023-05-09] MEDS: Acetaminophen 325 MG Tab PO PRN ×2 (02:08→16:47)
[2023-05-09 06:50] LABS: CALCIUM 7.1 mg/dL (8.5-10.1); CREATININE 0.6 mg/dL (0.7-1.3); EST CRCL DRUG DOSING (CG) 104.19 mL/min
[2023-05-09 07:15] LABS: BASOPHILS ABSOLUTE AUTO 0.01 K/mm3 (0.01-0.08); BASOPHILS PERCENT AUTO 0.2 % (0.1-1.2); EOSINOPHILS ABSOLUTE AUTO 0.15 K/mm3 (0.04-0.54); HEMATOCRIT 31.4 % (40.1-51.0); HEMOGLOBIN 10.4 gm/dl (13.7-17.5); IMMATURE GRAN ABSOLUTE AUTO 0.08 K/mm3 (0.00-0.10); IMMATURE GRAN PERCENT AUTO 1.6 % (<=1.0); LYMPHOCYTES ABSOLUTE AUTO 0.79 K/mm3 (1.32-3.57); MEAN CORPUSCULAR HEMOGLOBIN 29.9 pg (25.7-32.2); MEAN CORPUSCULAR HGB CONC 33.1 g/dl (32.2-35.5); MEAN CORPUSCULAR VOLUME 90.2 fl (79.0-92.2); MEAN PLATELET VOLUME 7.6 fl (9.4-12.3); MONOCYTES PERCENT AUTO 12.2 % (5.3-12.2); PLATELET COUNT,PLT 121 K/mm3 (163-337); RED BLOOD CELL COUNT 3.48 M/mm3 (4.63-6.08); WHITE BLOOD CELL COUNT,WBC 4.93 K/mm3 (4.23-9.07)
[2023-05-09] MEDS: Insulin Lispro 100 Unit/ML 3 ML KwikPen SUBCUT SCH ×4 (07:28→21:37)
[2023-05-09] MEDS: oxyCODONE ER 20 MG TAB.ER PO SCH ×2 (08:38→20:00)
[2023-05-09] MEDS: Enoxaparin 40 MG/0.4 ML Syringe SUBCUT SCH (08:39)
[2023-05-09] MEDS ORDERED: Albuterol 6.7 GM Inhaler INH PRN (12:31)
[2023-05-09] MEDS ORDERED: Fluticasone NASAL Spray 16 GM Bottle NASBOTH PRN (12:31)
[2023-05-09] MEDS ORDERED: Carboxymethylcellulose Sodium 1% Ophth Gel 15 ML Bottle EYEBOTH PRN (12:31)
[2023-05-09] MEDS: oxyCODONE 5 MG Tab PO PRN (13:56)
[2023-05-09] MEDS: Temazepam 7.5 MG Cap PO PRN (20:00)
[2023-05-09] MEDS: Aspirin 81 MG Tab.EC PO SCH (20:00)
[2023-05-09] MEDS: atorvaSTATin 20 MG Tab PO SCH (20:00)
[2023-05-09] MEDS: Insulin Glargine,Human Rec. Analog 100 Units/ML 3 ML Pen SUBCUT SCH (21:37)
[2023-05-10] MEDS: Docusate Sodium 100 MG Cap PO PRN (01:11)
[2023-05-10] MEDS: oxyCODONE 5 MG Tab PO PRN ×3 (01:11→17:59)
[2023-05-10] MEDS: Acetaminophen 325 MG Tab PO PRN ×3 (03:00→22:23)
[2023-05-10] MEDS: Levothyroxine 50 MCG Tab PO SCH (05:24)
[2023-05-10] MEDS: Levothyroxine 125 MCG Tab PO SCH (05:24)
[2023-05-10 06:13] LABS: ANION GAP 10.8 (5-15); BUN/CREATININE RATIO 13.3 (14-18); CALCIUM 7.4 mg/dL (8.5-10.1); CREATININE 0.6 mg/dL (0.7-1.3); EST CRCL DRUG DOSING (CG) 104.19 mL/min; POTASSIUM,K 3.8 mEq/L (3.5-5.1)
[2023-05-10 06:24] LABS: BASOPHILS ABSOLUTE AUTO 0.02 K/mm3 (0.01-0.08); BASOPHILS PERCENT AUTO 0.4 % (0.1-1.2); EOSINOPHILS ABSOLUTE AUTO 0.17 K/mm3 (0.04-0.54); EOSINOPHILS PERCENT AUTO 3.6 (0.8-7.0); HEMATOCRIT 33.1 % (40.1-51.0); HEMOGLOBIN 10.9 gm/dl (13.7-17.5); IMMATURE GRAN ABSOLUTE AUTO 0.17 K/mm3 (0.00-0.10); IMMATURE GRAN PERCENT AUTO 3.6 % (<=1.0); LYMPHOCYTES ABSOLUTE AUTO 0.82 K/mm3 (1.32-3.57); LYMPHOCYTES PERCENT AUTO 17.3 % (21.8-53.1); MEAN CORPUSCULAR HEMOGLOBIN 29.9 pg (25.7-32.2); MEAN CORPUSCULAR HGB CONC 32.9 g/dl (32.2-35.5); MEAN CORPUSCULAR VOLUME 90.9 fl (79.0-92.2); MEAN PLATELET VOLUME 7.8 fl (9.4-12.3); MONOCYTES ABSOLUTE AUTO 0.51 K/mm3 (0.30-0.82); MONOCYTES PERCENT AUTO 10.7 % (5.3-12.2); NEUTROPHILS ABSOLUTE AUTO 3.06 K/mm3 (1.78-5.38); NEUTROPHILS PERCENT AUTO 64.4 % (34.0-67.9); PLATELET COUNT,PLT 147 K/mm3 (163-337); RED BLOOD CELL COUNT 3.64 M/mm3 (4.63-6.08); WHITE BLOOD CELL COUNT,WBC 4.75 K/mm3 (4.23-9.07)
[2023-05-10 07:53] LABS: SLIDE REVIEW ABNORMAL SMEAR
[2023-05-10] MEDS: Cholecalciferol (Vitamin D3) 5,000 UNIT Cap PO SCH (08:42)
[2023-05-10] MEDS: Tamsulosin 0.4 MG Cap.ER PO SCH (08:42)
[2023-05-10] MEDS: Enoxaparin 40 MG/0.4 ML Syringe SUBCUT SCH (08:42)
[2023-05-10] MEDS: Insulin Lispro 100 Unit/ML 3 ML KwikPen SUBCUT SCH ×4 (08:42→20:10)
[2023-05-10] MEDS: Metoprolol Succinate 50 MG Tab.ER PO SCH (08:42)
[2023-05-10] MEDS: Losartan 25 MG Tab PO SCH (08:43)
[2023-05-10] MEDS: Calcium Carbonate 500 MG Tab.Chew PO SCH (08:44)
[2023-05-10] MEDS: Finasteride 5 MG Tab PO SCH (08:44)
[2023-05-10] MEDS: oxyCODONE ER 20 MG TAB.ER PO SCH ×2 (08:44→20:07)
[2023-05-10] MEDS: Bisacodyl 5 MG Tab PO SCH (13:24)
[2023-05-10] MEDS: Naloxegol Oxalate 25 MG Tab PO SCH (13:24)
[2023-05-10] MEDS: Polyethylene Glycol 3350 Powder 17 GM Packet PO SCH (13:25)
[2023-05-10 16:13] LABS: APPEARANCE,URINE CLEAR (Clear); BILIRUBIN,URINE NEGATIVE (Negative); COLOR,URINE YELLOW (Yellow); GLUCOSE,URINE NEGATIVE (Negative); KETONES,URINE NEGATIVE (Negative); LEUKOCYTE ESTERASE,URINE NEGATIVE (Negative); NITRITE,URINE NEGATIVE (Negative); OCCULT BLOOD,URINE 3+ (Negative); PROTEIN,URINE 2+ (Negative); UROBILINOGEN,URINE 0.2 (0.2-1.0)
[2023-05-10 16:30] LABS: BACTERIA,URINE FEW /hpf (FEW); EPITHELIAL CELLS,URINE 0-5 /hpf (0-5); MUCUS,URINE FEW /hpf (FEW); RBC,URINE 20-30 /hpf (0-5); WBC,URINE 0-5 /hpf (0-5)
[2023-05-10] MEDS: atorvaSTATin 20 MG Tab PO SCH (20:07)
[2023-05-10] MEDS: Aspirin 81 MG Tab.EC PO SCH (20:07)
[2023-05-10] MEDS: Insulin Glargine,Human Rec. Analog 100 Units/ML 3 ML Pen SUBCUT SCH (20:10)
[2023-05-10] MEDS ORDERED: Tamsulosin 0.4 MG Cap.ER PO ONE (21:00)
[2023-05-10] MEDS: Temazepam 7.5 MG Cap PO PRN (22:24)
[2023-05-11] MEDS: oxyCODONE 5 MG Tab PO PRN ×2 (04:26→11:50)
[2023-05-11] MEDS: Docusate Sodium 100 MG Cap PO PRN ×2 (04:27→20:22)
[2023-05-11 06:03] LABS: ANION GAP 8.9 (5-15); BUN/CREATININE RATIO 13.3 (14-18); CALCIUM 7.6 mg/dL (8.5-10.1); CREATININE 0.6 mg/dL (0.7-1.3); EST CRCL DRUG DOSING (CG) 104.19 mL/min; POTASSIUM,K 3.9 mEq/L (3.5-5.1)
[2023-05-11] MEDS: Levothyroxine 50 MCG Tab PO SCH (06:13)
[2023-05-11] MEDS: Levothyroxine 125 MCG Tab PO SCH (06:13)
[2023-05-11 06:19] LABS: BASOPHILS ABSOLUTE AUTO 0.01 K/mm3 (0.01-0.08); BASOPHILS PERCENT AUTO 0.2 % (0.1-1.2); EOSINOPHILS ABSOLUTE AUTO 0.25 K/mm3 (0.04-0.54); EOSINOPHILS PERCENT AUTO 5.6 (0.8-7.0); HEMATOCRIT 32.8 % (40.1-51.0); HEMOGLOBIN 10.6 gm/dl (13.7-17.5); IMMATURE GRAN ABSOLUTE AUTO 0.15 K/mm3 (0.00-0.10); IMMATURE GRAN PERCENT AUTO 3.4 % (<=1.0); LYMPHOCYTES ABSOLUTE AUTO 0.85 K/mm3 (1.32-3.57); LYMPHOCYTES PERCENT AUTO 19.1 % (21.8-53.1); MEAN CORPUSCULAR HEMOGLOBIN 29.4 pg (25.7-32.2); MEAN CORPUSCULAR HGB CONC 32.3 g/dl (32.2-35.5); MEAN CORPUSCULAR VOLUME 90.9 fl (79.0-92.2); MEAN PLATELET VOLUME 7.8 fl (9.4-12.3); MONOCYTES ABSOLUTE AUTO 0.48 K/mm3 (0.30-0.82); MONOCYTES PERCENT AUTO 10.8 % (5.3-12.2); NEUTROPHILS PERCENT AUTO 60.9 % (34.0-67.9); PLATELET COUNT,PLT 145 K/mm3 (163-337); RED BLOOD CELL COUNT 3.61 M/mm3 (4.63-6.08); WHITE BLOOD CELL COUNT,WBC 4.44 K/mm3 (4.23-9.07)
[2023-05-11 07:32] LABS: SLIDE REVIEW ABNORMAL SMEAR
[2023-05-11] MEDS: Insulin Lispro 100 Unit/ML 3 ML KwikPen SUBCUT SCH ×4 (08:09→20:29)
[2023-05-11] MEDS: Cholecalciferol (Vitamin D3) 5,000 UNIT Cap PO SCH (08:10)
[2023-05-11] MEDS: Losartan 25 MG Tab PO SCH (08:10)
[2023-05-11] MEDS: Tamsulosin 0.4 MG Cap.ER PO SCH (08:10)
[2023-05-11] MEDS: Bisacodyl 5 MG Tab PO SCH (08:10)
[2023-05-11] MEDS: oxyCODONE ER 20 MG TAB.ER PO SCH ×2 (08:10→20:21)
[2023-05-11] MEDS: Naloxegol Oxalate 25 MG Tab PO SCH (08:10)
[2023-05-11] MEDS: Metoprolol Succinate 50 MG Tab.ER PO SCH (08:11)
[2023-05-11] MEDS: Calcium Carbonate 500 MG Tab.Chew PO SCH (08:11)
[2023-05-11] MEDS: Finasteride 5 MG Tab PO SCH (08:11)
[2023-05-11] MEDS: Enoxaparin 40 MG/0.4 ML Syringe SUBCUT SCH (08:13)
[2023-05-11] MEDS: Polyethylene Glycol 3350 Powder 17 GM Packet PO SCH (08:15)
[2023-05-11] MEDS: Acetaminophen 325 MG Tab PO PRN (13:56)
[2023-05-11] MEDS ORDERED: Bisacodyl 10 MG Supp RECTAL ONE (16:52)
[2023-05-11] MEDS: Aspirin 81 MG Tab.EC PO SCH (20:22)
[2023-05-11] MEDS: atorvaSTATin 20 MG Tab PO SCH (20:22)
[2023-05-11] MEDS: Insulin Glargine,Human Rec. Analog 100 Units/ML 3 ML Pen SUBCUT SCH (20:25)
[2023-05-11] MEDS: Lidocaine 4% 1 each Patch TOP PRN (21:06)
[2023-05-11] MEDS: Temazepam 7.5 MG Cap PO PRN (21:07)
[2023-05-12] MEDS: oxyCODONE 5 MG Tab PO PRN ×2 (00:19→04:29)
[2023-05-12] MEDS: Acetaminophen 325 MG Tab PO PRN ×4 (01:20→17:03)
[2023-05-12] MEDS: Levothyroxine 125 MCG Tab PO SCH (05:24)
[2023-05-12] MEDS: Levothyroxine 50 MCG Tab PO SCH (05:24)
[2023-05-12] MEDS: Insulin Lispro 100 Unit/ML 3 ML KwikPen SUBCUT SCH ×4 (07:55→21:31)
[2023-05-12] MEDS: Calcium Carbonate 500 MG Tab.Chew PO SCH (09:16)
[2023-05-12] MEDS: Tamsulosin 0.4 MG Cap.ER PO SCH (09:17)
[2023-05-12] MEDS: Bisacodyl 5 MG Tab PO SCH (09:18)
[2023-05-12] MEDS: Naloxegol Oxalate 25 MG Tab PO SCH (09:18)
[2023-05-12] MEDS: Finasteride 5 MG Tab PO SCH (09:19)
[2023-05-12] MEDS: Cholecalciferol (Vitamin D3) 5,000 UNIT Cap PO SCH (09:19)
[2023-05-12] MEDS: oxyCODONE ER 20 MG TAB.ER PO SCH ×2 (09:20→20:01)
[2023-05-12] MEDS: Metoprolol Succinate 50 MG Tab.ER PO SCH (09:20)
[2023-05-12] MEDS: Enoxaparin 40 MG/0.4 ML Syringe SUBCUT SCH (09:21)
[2023-05-12] MEDS: Polyethylene Glycol 3350 Powder 17 GM Packet PO SCH (09:21)
[2023-05-12] MEDS: Losartan 25 MG Tab PO SCH (09:21)
[2023-05-12] MEDS ORDERED: fentaNYL 25 MCG/HR Transdermal Patch TRDERM SCH (12:00)
[2023-05-12] MEDS: Mupirocin Oint 22 GM Tube TOP SCH ×2 (19:09→20:03)
[2023-05-12] MEDS: Aspirin 81 MG Tab.EC PO SCH (20:01)
[2023-05-12] MEDS: atorvaSTATin 20 MG Tab PO SCH (20:01)
[2023-05-12] MEDS: Temazepam 7.5 MG Cap PO PRN (21:06)
[2023-05-12] MEDS: Insulin Glargine,Human Rec. Analog 100 Units/ML 3 ML Pen SUBCUT SCH (21:28)
[2023-05-13] MEDS: oxyCODONE 5 MG Tab PO PRN (02:03)
[2023-05-13] MEDS: Levothyroxine 125 MCG Tab PO SCH (05:12)
[2023-05-13] MEDS: Levothyroxine 50 MCG Tab PO SCH (05:12)
[2023-05-13] MEDS: Acetaminophen 325 MG Tab PO PRN ×2 (05:16→10:56)
[2023-05-13] MEDS: Insulin Lispro 100 Unit/ML 3 ML KwikPen SUBCUT SCH ×2 (07:46→11:07)
[2023-05-13] MEDS: Polyethylene Glycol 3350 Powder 17 GM Packet PO SCH (08:42)
[2023-05-13] MEDS: Cholecalciferol (Vitamin D3) 5,000 UNIT Cap PO SCH (08:43)
[2023-05-13] MEDS: Calcium Carbonate 500 MG Tab.Chew PO SCH (08:43)
[2023-05-13] MEDS: Bisacodyl 5 MG Tab PO SCH (08:44)
[2023-05-13] MEDS: Naloxegol Oxalate 25 MG Tab PO SCH (08:44)
[2023-05-13] MEDS: Finasteride 5 MG Tab PO SCH (08:44)
[2023-05-13] MEDS: Metoprolol Succinate 50 MG Tab.ER PO SCH (08:45)
[2023-05-13] MEDS: oxyCODONE ER 20 MG TAB.ER PO SCH (08:45)
[2023-05-13] MEDS: Losartan 25 MG Tab PO SCH (08:45)
[2023-05-13] MEDS: Enoxaparin 40 MG/0.4 ML Syringe SUBCUT SCH (08:46)
[2023-05-13] MEDS: Tamsulosin 0.4 MG Cap.ER PO SCH (08:46)
[2023-05-13] MEDS: Mupirocin Oint 22 GM Tube TOP SCH (08:47)
[2023-05-13] MEDS: Lidocaine 4% 1 each Patch TOP PRN (10:56)
[2023-05-13 11:03] VITALS: BP 129/84; PULSE 74
== END 2023-05-13 13:00 | DRG 948 ==
LOC: JD.ED 08:50 → JD.MS 13:28
PROVIDERS: ADMIT Hospitalist; ATTEND Hospitalist
DX: G89.3 Neoplasm related pain (acute) (chronic) (principal); C79.51 Secondary malignant neoplasm of bone; E87.1 Hypo-osmolality and hyponatremia; M54.2 Cervicalgia; F05 Delirium due to known physiological condition; C61 Malignant neoplasm of prostate; E11.9 Type 2 diabetes mellitus without complications; R62.7 Adult failure to thrive; E86.0 Dehydration; N40.1 Benign prostatic hyperplasia with lower urinary tract symptoms; Z88.5 Allergy status to narcotic agent; R33.8 Other retention of urine; Z88.6 Allergy status to analgesic agent; E78.00 Pure hypercholesterolemia, unspecified; Z91.048 Other nonmedicinal substance allergy status; H54.7 Unspecified visual loss; I10 Essential (primary) hypertension; Z79.899 Other long term (current) drug therapy; K21.9 Gastro-esophageal reflux disease without esophagitis; E03.9 Hypothyroidism, unspecified; M19.90 Unspecified osteoarthritis, unspecified site; F41.9 Anxiety disorder, unspecified; F32.A Depression, unspecified; G30.9 Alzheimer's disease, unspecified; E11.65 Type 2 diabetes mellitus with hyperglycemia; F02.B0 Dementia in other diseases classified elsewhere, moderate, without behavioral disturbance, psychotic disturbance, mood disturbance, and anxiety; Z96.653 Presence of artificial knee joint, bilateral; R53.81 Other malaise; D63.0 Anemia in neoplastic disease; D69.59 Other secondary thrombocytopenia; N32.0 Bladder-neck obstruction; K59.03 Drug induced constipation; T40.2X5A Adverse effect of other opioids, initial encounter; Z88.7 Allergy status to serum and vaccine; Z88.2 Allergy status to sulfonamides; Z88.8 Allergy status to other drugs, medicaments and biological substances; Z79.82 Long term (current) use of aspirin; Z79.890 Hormone replacement therapy; Z79.4 Long term (current) use of insulin; Z86.16 Personal history of COVID-19; Z90.49 Acquired absence of other specified parts of digestive tract; Z68.27 Body mass index [BMI] 27.0-27.9, adult
CPT/HCPCS: 36415; 71045; 80053; 83036; 83735; 84484; 85025; 85610; 85730; 93005; 96374; 99285; J1200; 51701; 51702; 51798; 80048; 81001; 82947; 93010; 97116-GP; 97162-GP; A9270-GY; J1650; J1815; J1815-GY; J7030

== ENCOUNTER 2023-07-02 15:34 | Emergency (ER) | payer MEDICARE, OTHER ==
[2023-07-02] MEDS ORDERED: Sodium Chloride 0.9% 10 ML Syringe FLUSH PRN (16:19)
[2023-07-02 17:33] LABS: BASOPHILS PERCENT AUTO 0.3 % (0.0-1.0); EOSINOPHILS ABSOLUTE AUTO 0.2 K/mm3 (0.0-0.4); EOSINOPHILS PERCENT AUTO 3.7 % (0.0-6.0); HEMOGLOBIN 9.3 gm/dl (14.0-18.0); IMMATURE GRAN ABSOLUTE AUTO 0.05 K/mm3 (0.00-0.05); IMMATURE GRAN PERCENT AUTO 0.8 % (0.0-0.4); LYMPHOCYTES ABSOLUTE AUTO 0.7 K/mm3 (1.0-4.8); LYMPHOCYTES PERCENT AUTO 10.2 % (24.0-44.0); MEAN CORPUSCULAR HEMOGLOBIN 28.8 pg (28.0-32.0); MEAN CORPUSCULAR VOLUME 92.9 fl (83.0-99.0); MONOCYTES ABSOLUTE AUTO 0.5 K/mm3 (0.0-0.8); MONOCYTES PERCENT AUTO 7.1 % (0.0-8.0); NEUTROPHILS PERCENT AUTO 77.9 % (41.0-71.0); PLATELET COUNT,PLT 166 K/mm3 (150-400); RED BLOOD CELL COUNT 3.23 M/mm3 (4.52-5.90); WHITE BLOOD CELL COUNT,WBC 6.47 K/mm3 (3.9-11.3)
[2023-07-02 17:56] LABS: A/G RATIO 0.8 (1-2); ALBUMIN 2.4 g/dl (3.4-5.0); ANION GAP 11.8 (5-15); BILIRUBIN TOTAL 0.5 mg/dL (0.2-1.0); CALCIUM 7.7 mg/dL (8.5-10.1); EST CRCL DRUG DOSING (CG) 62.51 mL/min; POTASSIUM,K 4.8 mEq/L (3.5-5.1); PROTEIN TOTAL,TP 5.5 g/dl (6.4-8.2)
[2023-07-02 18:46] LABS: APPEARANCE,URINE TURBID (Clear); BILIRUBIN,URINE NEGATIVE (Negative); COLOR,URINE RED (Yellow); GLUCOSE,URINE NEGATIVE (Negative); KETONES,URINE NEGATIVE (Negative); LEUKOCYTE ESTERASE,URINE 1+ (Negative); NITRITE,URINE POSITIVE (Negative); OCCULT BLOOD,URINE 3+ (Negative); PROTEIN,URINE 3+ (Negative)
[2023-07-02 18:52] LABS: BACTERIA,URINE MODERATE /hpf (FEW); MUCUS,URINE FEW /hpf (FEW); RBC,URINE TOO NUMEROUS TO CNT /hpf (0-5); SQUAMOUS EPITHELIAL CELLS,UR 0-5 /hpf (0-5); WBC,URINE 40-50 /hpf (0-5)
[2023-07-02] MEDS ORDERED: cefTRIAXone 2 GM in Sodium Chloride 0.9% 100 ML IV ONE (19:25)
[2023-07-02 20:53] VITALS: BP 164/78; PULSE 90
== END 2023-07-02 20:53 | disposition home or self-care (01) ==
LOC: JD.ED 15:34
DX: N39.0 Urinary tract infection, site not specified (principal); E78.00 Pure hypercholesterolemia, unspecified; I10 Essential (primary) hypertension; M19.90 Unspecified osteoarthritis, unspecified site; E03.9 Hypothyroidism, unspecified; E11.9 Type 2 diabetes mellitus without complications; Z79.4 Long term (current) use of insulin; Z79.82 Long term (current) use of aspirin; Z79.899 Other long term (current) drug therapy; Z86.16 Personal history of COVID-19; Z88.8 Allergy status to other drugs, medicaments and biological substances; Z88.2 Allergy status to sulfonamides; Z88.5 Allergy status to narcotic agent
CPT/HCPCS: 36415; 80053; 81001; 85025; 96365; 99283; J0696; J3490; 99284